=== PATIENT | female | born 1945 | race Caucasian/White ===

== ENCOUNTER 2019-10-30 11:08 | Inpatient (IN) | payer MEDICARE, BC ==
[~2019-10-30] VITALS: Ht 162.6 cm; Wt 71.5 kg
[2019-10-30 11:36] LABS: BASO # 0.1 x10^3/uL (0.0-0.2); BASO % 1 % (0-3); EOS # 0.3 x10^3/uL (0.0-0.7); EOS % 4 % (0-3); HEMATOCRIT 24.8 % (36.0-47.0); HEMOGLOBIN 8.6 g/dL (12.0-15.5); LYMPH # 1.4 x10^3/uL (1.0-4.8); LYMPH % 16 % (24-48); MEAN CORPUSCULAR HEMOGLOBIN 30 pg (25-35); MEAN CORPUSCULAR HGB CONC 35 g/dL (31-37); MEAN CORPUSCULAR VOLUME 87 fL (79-100); MONO # 0.3 x10^3/uL (0.0-1.1); MONO % 4 % (0-9); NEUT # 6.6 x10^3/uL (1.8-7.7); NEUT % 75 % (31-73); PLATELET COUNT 153 x10^3/uL (140-400); RED BLOOD COUNT 2.86 x10^6/uL (3.50-5.40); RED CELL DISTRIBUTION WIDTH 15.6 % (11.5-14.5); WHITE BLOOD COUNT 8.8 x10^3/uL (4.0-11.0)
[2019-10-30 11:53] LABS: ALBUMIN 2.4 g/dL (3.4-5.0); ALBUMIN/GLOBULIN RATIO 0.9 (1.0-1.7); CALCIUM 7.8 mg/dL (8.5-10.1); CREATININE 6.2 mg/dL (0.6-1.0); GFR 6.6; POTASSIUM 3.7 mmol/L (3.5-5.1); TOTAL BILIRUBIN 0.2 mg/dL (0.2-1.0)
[2019-10-30 14:00] VITALS: BP 149/73
[2019-10-30] MEDS ORDERED: LIDOCAINE 1% Multi-Dose 20 ML VIAL. ONE (14:03)
[2019-10-30] MEDS ORDERED: LIDOCAINE 1% Multi-Dose 20 ML VIAL. INJ ONE (14:30)
--- NOTE | 2019-10-30 15:01 | NUR ---
Patient to IR for temp HD catheter placement. Dr. Hickey placed right IJ temp HD catheter, no sedation patient tolerated well with no complications, vitals stable. Patient transferred to dialysis; report called to 2nd floor nurse.
[2019-10-30] MEDS ORDERED: IV NORMAL SALINE 1000ML BAG 1,000 ML IV PRN ×2 (15:37)
--- NOTE | 2019-10-30 15:44 | RAD ---
Procedure: Ultrasound-guided placement of right internal jugular central venous catheter10/30/2019 1:39 PM Clinical Indication: Renal failure Discussion: The risks and benefits of the procedure were discussed the patient and/or their customer service representative teller. Informed consent was obtained. A timeout procedure was performed. All elements of maximal sterile barrier technique including the use of a cap, mask, sterile gown, sterile gloves, large sterile sheet, appropriate hand hygiene, and 2% chlorhexidine for cutaneous antisepsis (or acceptable alternative antiseptic per current guidelines) were followed for this procedure. The patient was prepped and draped in the usual sterile fashion. Ultrasound interrogation of the right neck revealed patency and compressibility of the right internal jugular vein. A 21-gauge micropuncture was then used to gain access to this vein under ultrasound guidance. A hard copy ultrasound image was recorded. A guidewire was advanced centrally. 5 [place] sheath was placed. Over a wire following dilatation, a 20 cm dual-lumen temporary dialysis catheter was advanced centrally. Fluoroscopy was used to ensure placement in the proximal right atrium. Catheter was found to flush and aspirate normally. Follow-up chest radiograph demonstrates tip at the cavoatrial junction. Catheter secured in place and a sterile dressing was applied. No immediate complications were identified. FLUORO TIME: 0.4 MIN Dose area product: 3 [id number] Impression: Successful ultrasound-guided placement of right internal jugular temporary dialysis catheter
[2019-10-30] MEDS ORDERED: diphenhydrAMINE HCL 25 MG CAPSULE PO PRN (15:45)
[2019-10-30] MEDS ORDERED: diphenhydrAMINE 50 MG/ML VIAL IV PRN ×2 (15:45)
[2019-10-30] MEDS ORDERED: ACETAMINOPHEN 500 MG TABLET PO PRN (15:45)
[2019-10-30] MEDS ORDERED: ALPRAZolam 0.25 MG TABLET PO PRN (15:45)
[2019-10-30] MEDS ORDERED: DIALYSIS PATIENT. MC PRN (15:45)
[2019-10-30] MEDS ORDERED: ONDANSETRON ODT 4 MG TAB.RAPDIS. PO PRN (15:45)
[2019-10-30] MEDS: ALBUTEROL SULFATE 2.5 MG/3 ML NEBU. NEB SCH ×2 (15:55→19:50)
--- NOTE | 2019-10-30 17:46 | PHYS DOC ---
Past Medical History Past Medical History: Anemia, Anxiety, CVA, Dementia, Diabetes-Type II, Hypertension, Renal Disease Past Surgical History: No Surgical History Smoking Status: Never Smoker Alcohol Use: None General Adult EDM: Chief Complaint: ABNORMAL LABS HPI: HPI: Patient is a 74 year old female who presents with kidney failure. She saw her primary care doctor earlier today who did labs on her and found that she was in acute kidney failure she has been having decreased kidney function for several months. They feel like she is now in need of dialysis. She has no complaints. Review of Systems: Review of Systems: General: Denies fever, chills, sweats, fatigue Eyes: Denies drainage, blurred vision HENT: Denies rhinorrhea, sore throat Respiratory: Denies cough, shortness of breath, wheezing Cardiac: Denies edema, palpitations, chest pain GI: Denies abdominal pain, N/V MSK: Denies back pain, neck pain Skin: Denies rash, jaundice Neuro: Denies headache, dizziness Psychiatric: Denies SI/HI Heart Score: Risk Factors: Risk Factors: DM, Current or recent (<one month) smoker, HTN, HLP, family history of CAD, obesity. Risk Scores: Score 0 - 3: 2.5% MACE over next 6 weeks - Discharge Home Score 4 - 6: 20.3% MACE over next 6 weeks - Admit for Clinical Observation Score 7 - 10: 72.7% MACE over next 6 weeks - Early Invasive Strategies Allergies: Allergies: Allergies Coded Allergies Type Severity Reaction Last Updated Verified Penicillins Allergy Unknown 10/30/19 Yes Zljiiew-Jcu-Hxl Reductase Inhibitor Allergy Unknown 10/30/19 Yes isosorbide Allergy Unknown 10/30/19 Yes latex Allergy Unknown 10/30/19 Yes trandolapril Allergy Unknown 10/30/19 Yes verapamil Allergy Unknown 10/30/19 Yes Physical Exam: PE: Constitutional: Well developed, well nourished, Cooperative, NAD, non-toxic appearing HEENT: Normocephalic, atraumatic, oropharynx moist, EOMI, PERRL, no drainage from eyes, normal conjunctiva Neck: Supple, normal range of motion, no stridor Cardiovascular: RRR, 2+ radial pulses bilaterally, diffuse edema Respiratory: CTA bilaterally, no respiratory distress, no wheezing/crackles Abdomen: Soft, nontender, nondistended, no masses Skin: Warm, dry, intact Extremities: No obvious deformities Neurologic: Alert and Oriented x3, motor and sensory function grossly normal, no focal deficits Psychologic: Normal affect, normal judgment, normal mood. No SI/HI Current Patient Data: Labs: Laboratory Tests Test 10/30/19 11:27 White Blood Count 8.8 x10^3/uL (4.0-11.0) Red Blood Count 2.86 x10^6/uL (3.50-5.40) L Hemoglobin 8.6 g/dL (12.0-15.5) L Hematocrit 24.8 % (36.0-47.0) L Mean Corpuscular Volume 87 fL (79-100) Mean Corpuscular Hemoglobin 30 pg (25-35) Mean Corpuscular Hemoglobin Concent 35 g/dL (31-37) Red Cell Distribution Width 15.6 % (11.5-14.5) H Platelet Count 153 x10^3/uL (140-400) Neutrophils (%) (Auto) 75 % (31-73) H Lymphocytes (%) (Auto) 16 % (24-48) L Monocytes (%) (Auto) 4 % (0-9) Eosinophils (%) (Auto) 4 % (0-3) H Basophils (%) (Auto) 1 % (0-3) Neutrophils # (Auto) 6.6 x10^3/uL (1.8-7.7) Lymphocytes # (Auto) 1.4 x10^3/uL (1.0-4.8) Monocytes # (Auto) 0.3 x10^3/uL (0.0-1.1) Eosinophils # (Auto) 0.3 x10^3/uL (0.0-0.7) Basophils # (Auto) 0.1 x10^3/uL (0.0-0.2) Sodium Level 120 mmol/L (136-145) *L Potassium Level 3.7 mmol/L (3.5-5.1) Chloride Level 84 mmol/L (98-107) L Carbon Dioxide Level 22 mmol/L (21-32) Anion Gap 14 (6-14) Blood Urea Nitrogen 49 mg/dL (7-20) H Creatinine 6.2 mg/dL (0.6-1.0) H Estimated GFR (Cockcroft-Gault) 6.6 BUN/Creatinine Ratio 8 (6-20) Glucose Level 127 mg/dL (70-99) H Calcium Level 7.8 mg/dL (8.5-10.1) L Total Bilirubin 0.2 mg/dL (0.2-1.0) Aspartate Amino Transferase (AST) 25 U/L (15-37) Alanine Aminotransferase (ALT) 20 U/L (14-59) Alkaline Phosphatase 84 U/L (46-116) Total Protein 5.0 g/dL (6.4-8.2) L Albumin 2.4 g/dL (3.4-5.0) L Albumin/Globulin Ratio 0.9 (1.0-1.7) L Hepatitis B Surface Antigen Nonreactive (Nonreactive) Hepatitis B Core Total Antibody Nonreactive (Nonreactive) Laboratory Tests 10/30/19 11:27 Laboratory Tests 10/30/19 11:27 Vital Signs: Vital Signs Date Time Temp Pulse Resp B/P (MAP) Pulse Ox O2 Delivery O2 Flow Rate FiO2 10/30/19 14:48 Room Air 10/30/19 14:00 97.8 71 20 149/73 (98) 96 97.8 EKG: EKG: [] Radiology/Procedures: Radiology/Procedures: [] Course & Med Decision Making: Course & Med Decision Making Pertinent Labs and Imaging studies reviewed. (See chart for details) Patient is a 74-year-old female who presents to the emergency room needing admission for dialysis. She has no complaints at this time. BMP was done and shows elevated creatinine and a low sodium. She will not be given fluids given that she is requiring dialysis and has diffuse edema. Nephrology knows about her and plans to put in a dialysis catheter today. Dragon Disclaimer: Dragon Disclaimer: This electronic medical record was generated, in whole or in part, using a voice recognition dictation system. Departure Departure Impression: Primary Impression: Kidney failure Additional Impression: Hyponatremia Disposition: ADMITTED INPATIENT Condition: STABLE Referrals: RAY OSEGUERA MD (PCP) Justicifation of Admission Dx: Justifications for Admission: Justification of Admission Dx: Yes Acute Renal Failure: Serum Cr > 4mg/dL CLARICE LUGO MD Oct 30, 2019 17:46
[2019-10-30 17:52] VITALS: BP 166/73
[2019-10-30] MEDS: hydrALAZINE 20 MG/ML VIAL. IVP PRN (18:11)
--- NOTE | 2019-10-30 18:40 | HP ---
ADMIT DATE: 10/30/2019 CHIEF COMPLAINT: Abnormal labs. HISTORY OF PRESENT ILLNESS: The patient is a pleasant elderly female who has been developing renal failure for some time. Apparently, she was sent in because of abnormal labs to the point that she probably needs to start dialysis. Indeed, we checked her creatinine and it is 6.2, which puts her GFR around 10%. I discussed the case with ER physician. We are going to admit the patient, get her dialyzed. In fact, the patient just finished her first dialysis treatment upon my arrival. PAST MEDICAL HISTORY: End-stage renal disease, diabetes, and hypertension. ALLERGIES: PENICILLIN, STATINS, ISOSORBIDE, LATEX, ULTRAM AND VERAPAMIL. FAMILY HISTORY: Coronary artery disease. SOCIAL HISTORY: She does not drink, smoke or take drugs. MEDICATIONS: Reviewed, please refer to the MRAD. REVIEW OF SYSTEMS: GENERAL: No history of weight change, weakness or fevers. SKIN: No bruising, hair changes or rashes. EYES: No blurred, double or loss of vision. NOSE AND THROAT: No history of nosebleeds, hoarseness or sore throat. HEART: No history of palpitations, chest pain or shortness of breath on exertion. LUNGS: Denies cough, hemoptysis, wheezing or shortness of breath. GASTROINTESTINAL: Denies changes in appetite, nausea, vomiting, diarrhea or constipation. GENITOURINARY: No history of frequency, urgency, hesitancy or nocturia. NEUROLOGIC: Denies history of numbness, tingling, tremor or weakness. PSYCHIATRIC: No history of panic, anxiety or depression. ENDOCRINE: No history of heat or cold intolerance, polyuria or polydipsia. EXTREMITIES: Denies muscle weakness, joint pain, pain on walking or stiffness. PHYSICAL EXAMINATION: VITALS: Within normal limits and are stable. GENERAL: No apparent distress. Alert and oriented. HEENT: Normal cephalic atraumatic, external auditory canals are patent EYES: Extraocular muscles are intact, pupils are equally round and reactive to light and accommodation MUSCULOSKELETAL: Well developed, well nourished, good range of motion ENDOCRINE: No thyromegaly was palpated LYMPHATICS: No cervical chain or axillary nodes were noted HEMATOPOIETIC: No bruising NECK: Supple, no JVD, no thyromegaly was noted. LUNGS: Clear to auscultation in all lung melendez without rhonchi or wheezing. HEART: RRR, S1, S2 present. Peripheral pulses intact, no obvious murmurs were noted. ABDOMEN: Soft, nontender. Positive bowel sounds no organomegaly, normal bowel sounds. EXTREMITIES: Without any cyanosis, clubbing, or edema. Pedal pulses intact, Homans sign is negative. NEUROLOGIC: Normal speech, normal tone. A & O x3, moves all extremities, no obvious focal deficits. PSYCHIATRIC: Normal affect, normal mood. Stable. SKIN: No ulcerations or rashes, good skin turgor, no jaundice. VASCULAR: Good capillary refill, neurovascular bundle appears to be intact. ASSESSMENT AND PLAN: End-stage renal disease. We are starting dialysis today. We just got a catheter in her and just finished her first treatment. She will need 3 days' worth first and then she will go home with every other day dialysis once we can get her a chair time. Home meds, DVT prophylaxis. Full code. Appreciate Nephrology input. TETE COPELAND DO DR: LARISA/alyse JOB#: [id number] / [id number]
[2019-10-30 19:35] VITALS: BP 147/67
[2019-10-30] MEDS ORDERED: hydrALAZINE 10 MG TABLET PO SCH (21:00)
[2019-10-30] MEDS: LABETALOL HCL 200 MG TABLET PO SCH (21:06)
[2019-10-30 23:35] VITALS: BP 147/66
[2019-10-31 03:40] VITALS: BP 135/65
[2019-10-31] MEDS: LEVOTHYROXINE 50 MCG TABLET PO SCH (05:56)
[2019-10-31] MEDS ORDERED: ALPR0.254 PO (06:52)
[2019-10-31 07:00] VITALS: BP 168/81
[2019-10-31] MEDS ORDERED: BUME1TAB3 PO (07:10)
[2019-10-31] MEDS ORDERED: NIFE60TA90 PO (07:10)
[2019-10-31] MEDS ORDERED: ASPI-612 PO (07:10)
[2019-10-31] MEDS ORDERED: FAMO20TA5 PO (07:10)
[2019-10-31] MEDS ORDERED: LEVO50TA5 PO (07:10)
[2019-10-31] MEDS ORDERED: DIPH25CA58 PO (07:10)
[2019-10-31] MEDS ORDERED: LABE200T4 PO (07:10)
[2019-10-31] MEDS ORDERED: CHOL400C PO (07:10)
[2019-10-31] MEDS ORDERED: ALBU2.5V5 NEB (07:10)
[2019-10-31] MEDS ORDERED: HYDR100T24 PO (07:10)
[2019-10-31] MEDS ORDERED: ONDA4TAB7 PO (07:10)
[2019-10-31] MEDS ORDERED: POTA20TA4 PO (07:10)
[2019-10-31] MEDS: ALBUTEROL SULFATE 2.5 MG/3 ML NEBU. NEB SCH ×3 (07:26→16:00)
[2019-10-31] MEDS ORDERED: IV NORMAL SALINE 1000ML BAG 1,000 ML IV PRN ×2 (07:56)
[2019-10-31] MEDS ORDERED: DIALYSIS PATIENT. MC PRN ×2 (08:00)
[2019-10-31] MEDS ORDERED: 0.9 % SODIUM CHLORIDE 10 ML DISP.SYRIN. IV PRN ×2 (08:00)
[2019-10-31] MEDS ORDERED: ALBUMIN HUMAN 25% 200 ML IV PRN (08:00)
[2019-10-31 08:45] LABS: CALCIUM 7.9 mg/dL (8.5-10.1); CREATININE 4.3 mg/dL (0.6-1.0); GFR 10.1; POTASSIUM 3.2 mmol/L (3.5-5.1)
--- NOTE | 2019-10-31 10:14 | PDOC ---
PROGRESS NOTES History of Present Illness History of Present Illness ASSESSMENT AND PLAN: End-stage renal disease. Successful ultrasound-guided placement of right internal jugular temporary dialysis catheter 10/29 HYPERTENSION DIABETES HYPONATREMIA Severe protein-caloric malnutrition PLAN ADMIT dialysis today. DIALYSIS need 3 days' worth first go home with every other day dialysis NEED chair time. Home meds, DVT prophylaxis. Full code. Nephrology FOLLOWING 29 MIN PT EXAM, CHART REVIEW, > 50% of time spent with exam, chart review, pt care coordination Vitals Vitals Vital Signs Date Time Temp Pulse Resp B/P (MAP) Pulse Ox O2 Delivery O2 Flow Rate FiO2 10/31/19 08:00 Room Air 10/31/19 07:26 98 10/31/19 07:00 98.1 75 18 168/81 (110) 98.1 Physical Exam Physical Exam light and accommodation MUSCULOSKELETAL: Well developed, well nourished, good range of motion ENDOCRINE: No thyromegaly was palpated LYMPHATICS: No cervical chain or axillary nodes were noted HEMATOPOIETIC: No bruising NECK: Supple, no JVD, no thyromegaly was noted. LUNGS: Clear to auscultation in all lung melendez without rhonchi or wheezing. HEART: RRR, S1, S2 present. Peripheral pulses intact, no obvious murmurs were noted. ABDOMEN: Soft, nontender. Positive bowel sounds no organomegaly, normal bowel sounds. EXTREMITIES: Without any cyanosis, clubbing, or edema. Pedal pulses intact, Homans sign is negative. NEUROLOGIC: Normal speech, normal tone. A & O x3, moves all extremities, no obvious focal deficits. PSYCHIATRIC: Normal affect, normal mood. Stable. SKIN: No ulcerations or rashes, good skin turgor, no jaundice. VASCULAR: Good capillary refill, neurovascular bundle appears to be intact. General: Alert, Oriented X3, Cooperative, No acute distress, Other (only fair memory) Heart: Regular rate Lungs: Clear Abdomen: Normal bowel sounds, Soft, No tenderness Extremities: No clubbing, No cyanosis Skin: No significant lesion Labs LABS Procedure: Ultrasound-guided placement of right internal jugular central venous catheter10/30/2019 1:39 PM Clinical Indication: Renal failure Discussion: The risks and benefits of the procedure were discussed the patient and/or their customer relations representative. Informed consent was obtained. A timeout procedure was performed. All elements of maximal sterile barrier technique including the use of a cap, mask, sterile gown, sterile gloves, large sterile sheet, appropriate hand hygiene, and 2% chlorhexidine for cutaneous antisepsis (or acceptable alternative antiseptic per current guidelines) were followed for this procedure. The patient was prepped and draped in the usual sterile fashion. Ultrasound interrogation of the right neck revealed patency and compressibility of the right internal jugular vein. A 21-gauge micropuncture was then used to gain access to this vein under ultrasound guidance. A hard copy ultrasound image was recorded. A guidewire was advanced centrally. 5 Beninese sheath was placed. Over a wire following dilatation, a 20 cm dual-lumen temporary dialysis catheter was advanced centrally. Fluoroscopy was used to ensure placement in the proximal right atrium. Catheter was found to flush and aspirate normally. Follow-up chest radiograph demonstrates tip at the cavoatrial junction. Catheter secured in place and a sterile dressing was applied. No immediate complications were identified. FLUORO TIME: 0.4 MIN Dose area product: 3 [id number] Impression: Successful ultrasound-guided placement of right internal jugular temporary dialysis catheter DICTATED and SIGNED BY: ADA KWAN MD DATE: 10/30/191539 Laboratory Tests Test 10/30/19 11:27 10/30/19 18:04 10/30/19 21:25 10/31/19 07:29 White Blood Count 8.8 x10^3/uL (4.0-11.0) Red Blood Count 2.86 x10^6/uL (3.50-5.40) Hemoglobin 8.6 g/dL (12.0-15.5) Hematocrit 24.8 % (36.0-47.0) Mean Corpuscular Volume 87 fL (79-100) Mean Corpuscular Hemoglobin 30 pg (25-35) Mean Corpuscular Hemoglobin Concent 35 g/dL (31-37) Red Cell Distribution Width 15.6 % (11.5-14.5) Platelet Count 153 x10^3/uL (140-400) Neutrophils (%) (Auto) 75 % (31-73) Lymphocytes (%) (Auto) 16 % (24-48) Monocytes (%) (Auto) 4 % (0-9) Eosinophils (%) (Auto) 4 % (0-3) Basophils (%) (Auto) 1 % (0-3) Neutrophils # (Auto) 6.6 x10^3/uL (1.8-7.7) Lymphocytes # (Auto) 1.4 x10^3/uL (1.0-4.8) Monocytes # (Auto) 0.3 x10^3/uL (0.0-1.1) Eosinophils # (Auto) 0.3 x10^3/uL (0.0-0.7) Basophils # (Auto) 0.1 x10^3/uL (0.0-0.2) Sodium Level 120 mmol/L (136-145) Potassium Level 3.7 mmol/L (3.5-5.1) Chloride Level 84 mmol/L (98-107) Carbon Dioxide Level 22 mmol/L (21-32) Anion Gap 14 (6-14) Blood Urea Nitrogen 49 mg/dL (7-20) Creatinine 6.2 mg/dL (0.6-1.0) Estimated GFR (Cockcroft-Gault) 6.6 BUN/Creatinine Ratio 8 (6-20) Glucose Level 127 mg/dL (70-99) Calcium Level 7.8 mg/dL (8.5-10.1) Total Bilirubin 0.2 mg/dL (0.2-1.0) Aspartate Amino Transf (AST/SGOT) 25 U/L (15-37) Alanine Aminotransferase (ALT/SGPT) 20 U/L (14-59) Alkaline Phosphatase 84 U/L (46-116) Total Protein 5.0 g/dL (6.4-8.2) Albumin 2.4 g/dL (3.4-5.0) Albumin/Globulin Ratio 0.9 (1.0-1.7) Hepatitis B Surface Antigen Nonreactive (Nonreactive) Hepatitis B Surface Antibody, Quant 155.9 mIU/mL (Immunity>9.9) Hepatitis B Core Total Antibody Nonreactive (Nonreactive) Glucose (Fingerstick) 90 mg/dL (70-99) 101 mg/dL (70-99) 107 mg/dL (70-99) Test 10/31/19 08:20 Sodium Level 127 mmol/L (136-145) Potassium Level 3.2 mmol/L (3.5-5.1) Chloride Level 91 mmol/L (98-107) Carbon Dioxide Level 26 mmol/L (21-32) Anion Gap 10 (6-14) Blood Urea Nitrogen 27 mg/dL (7-20) Creatinine 4.3 mg/dL (0.6-1.0) Estimated GFR (Cockcroft-Gault) 10.1 Glucose Level 113 mg/dL (70-99) Calcium Level 7.9 mg/dL (8.5-10.1) Assessment and Plan Assessmemt and Plan Problems Medical Problems: (1) Hyponatremia Status: Acute (2) Kidney failure Status: Acute Comment Review of Relevant I have reviewed the following items parker (where applicable) has been applied. Labs Laboratory Tests Test 10/30/19 11:27 10/30/19 18:04 10/30/19 21:25 10/31/19 07:29 White Blood Count 8.8 x10^3/uL (4.0-11.0) Red Blood Count 2.86 x10^6/uL (3.50-5.40) Hemoglobin 8.6 g/dL (12.0-15.5) Hematocrit 24.8 % (36.0-47.0) Mean Corpuscular Volume 87 fL (79-100) Mean Corpuscular Hemoglobin 30 pg (25-35) Mean Corpuscular Hemoglobin Concent 35 g/dL (31-37) Red Cell Distribution Width 15.6 % (11.5-14.5) Platelet Count 153 x10^3/uL (140-400) Neutrophils (%) (Auto) 75 % (31-73) Lymphocytes (%) (Auto) 16 % (24-48) Monocytes (%) (Auto) 4 % (0-9) Eosinophils (%) (Auto) 4 % (0-3) Basophils (%) (Auto) 1 % (0-3) Neutrophils # (Auto) 6.6 x10^3/uL (1.8-7.7) Lymphocytes # (Auto) 1.4 x10^3/uL (1.0-4.8) Monocytes # (Auto) 0.3 x10^3/uL (0.0-1.1) Eosinophils # (Auto) 0.3 x10^3/uL (0.0-0.7) Basophils # (Auto) 0.1 x10^3/uL (0.0-0.2) Sodium Level 120 mmol/L (136-145) Potassium Level 3.7 mmol/L (3.5-5.1) Chloride Level 84 mmol/L (98-107) Carbon Dioxide Level 22 mmol/L (21-32) Anion Gap 14 (6-14) Blood Urea Nitrogen 49 mg/dL (7-20) Creatinine 6.2 mg/dL (0.6-1.0) Estimated GFR (Cockcroft-Gault) 6.6 BUN/Creatinine Ratio 8 (6-20) Glucose Level 127 mg/dL (70-99) Calcium Level 7.8 mg/dL (8.5-10.1) Total Bilirubin 0.2 mg/dL (0.2-1.0) Aspartate Amino Transf (AST/SGOT) 25 U/L (15-37) Alanine Aminotransferase (ALT/SGPT) 20 U/L (14-59) Alkaline Phosphatase 84 U/L (46-116) Total Protein 5.0 g/dL (6.4-8.2) Albumin 2.4 g/dL (3.4-5.0) Albumin/Globulin Ratio 0.9 (1.0-1.7) Hepatitis B Surface Antigen Nonreactive (Nonreactive) Hepatitis B Surface Antibody, Quant 155.9 mIU/mL (Immunity>9.9) Hepatitis B Core Total Antibody Nonreactive (Nonreactive) Glucose (Fingerstick) 90 mg/dL (70-99) 101 mg/dL (70-99) 107 mg/dL (70-99) Test 10/31/19 08:20 Sodium Level 127 mmol/L (136-145) Potassium Level 3.2 mmol/L (3.5-5.1) Chloride Level 91 mmol/L (98-107) Carbon Dioxide Level 26 mmol/L (21-32) Anion Gap 10 (6-14) Blood Urea Nitrogen 27 mg/dL (7-20) Creatinine 4.3 mg/dL (0.6-1.0) Estimated GFR (Cockcroft-Gault) 10.1 Glucose Level 113 mg/dL (70-99) Calcium Level 7.9 mg/dL (8.5-10.1) Laboratory Tests Test 10/30/19 11:27 10/30/19 18:04 10/30/19 21:25 10/31/19 07:29 White Blood Count 8.8 x10^3/uL (4.0-11.0) Red Blood Count 2.86 x10^6/uL (3.50-5.40) Hemoglobin 8.6 g/dL (12.0-15.5) Hematocrit 24.8 % (36.0-47.0) Mean Corpuscular Volume 87 fL (79-100) Mean Corpuscular Hemoglobin 30 pg (25-35) Mean Corpuscular Hemoglobin Concent 35 g/dL (31-37) Red Cell Distribution Width 15.6 % (11.5-14.5) Platelet Count 153 x10^3/uL (140-400) Neutrophils (%) (Auto) 75 % (31-73) Lymphocytes (%) (Auto) 16 % (24-48) Monocytes (%) (Auto) 4 % (0-9) Eosinophils (%) (Auto) 4 % (0-3) Basophils (%) (Auto) 1 % (0-3) Neutrophils # (Auto) 6.6 x10^3/uL (1.8-7.7) Lymphocytes # (Auto) 1.4 x10^3/uL (1.0-4.8) Monocytes # (Auto) 0.3 x10^3/uL (0.0-1.1) Eosinophils # (Auto) 0.3 x10^3/uL (0.0-0.7) Basophils # (Auto) 0.1 x10^3/uL (0.0-0.2) Sodium Level 120 mmol/L (136-145) Potassium Level 3.7 mmol/L (3.5-5.1) Chloride Level 84 mmol/L (98-107) Carbon Dioxide Level 22 mmol/L (21-32) Anion Gap 14 (6-14) Blood Urea Nitrogen 49 mg/dL (7-20) Creatinine 6.2 mg/dL (0.6-1.0) Estimated GFR (Cockcroft-Gault) 6.6 BUN/Creatinine Ratio 8 (6-20) Glucose Level 127 mg/dL (70-99) Calcium Level 7.8 mg/dL (8.5-10.1) Total Bilirubin 0.2 mg/dL (0.2-1.0) Aspartate Amino Transf (AST/SGOT) 25 U/L (15-37) Alanine Aminotransferase (ALT/SGPT) 20 U/L (14-59) Alkaline Phosphatase 84 U/L (46-116) Total Protein 5.0 g/dL (6.4-8.2) Albumin 2.4 g/dL (3.4-5.0) Albumin/Globulin Ratio 0.9 (1.0-1.7) Hepatitis B Surface Antigen Nonreactive (Nonreactive) Hepatitis B Surface Antibody, Quant 155.9 mIU/mL (Immunity>9.9) Hepatitis B Core Total Antibody Nonreactive (Nonreactive) Glucose (Fingerstick) 90 mg/dL (70-99) 101 mg/dL (70-99) 107 mg/dL (70-99) Test 10/31/19 08:20 Sodium Level 127 mmol/L (136-145) Potassium Level 3.2 mmol/L (3.5-5.1) Chloride Level 91 mmol/L (98-107) Carbon Dioxide Level 26 mmol/L (21-32) Anion Gap 10 (6-14) Blood Urea Nitrogen 27 mg/dL (7-20) Creatinine 4.3 mg/dL (0.6-1.0) Estimated GFR (Cockcroft-Gault) 10.1 Glucose Level 113 mg/dL (70-99) Calcium Level 7.9 mg/dL (8.5-10.1) Medications Current Medications Lidocaine HCl (Lidocaine 1% 20ml Vial) 20 ml STK-MED ONCE .ROUTE ; Start 10/30/19 at 14:03; Stop 10/30/19 at 14:03; Status DC Lidocaine HCl (Lidocaine 1% 20ml Vial) 20 ml 1X ONCE INJ Last administered on 10/30/19at 14:30; Start 10/30/19 at 14:30; Stop 10/30/19 at 14:31; Status DC Sodium Chloride 1,000 ml @ 1,000 mls/hr Q1H PRN IV hypotension; Start 10/30/19 at 15:37; Stop 10/30/19 at 21:36; Status DC Acetaminophen (Tylenol) 500 mg 1X PRN PRN PO MILD PAIN / TEMP > 100.3'F; Start 10/30/19 at 15:45; Stop 10/31/19 at 15:44 Diphenhydramine HCl (Benadryl) 25 mg 1X PRN PRN IV ITCHING; Start 10/30/19 at 15:45; Stop 10/31/19 at 15:44 Diphenhydramine HCl (Benadryl) 25 mg 1X PRN PRN IV ITCHING; Start 10/30/19 at 15:45; Stop 10/31/19 at 15:44 Sodium Chloride 1,000 ml @ 400 mls/hr Q2H30M PRN IV PATENCY; Start 10/30/19 at 15:37; Stop 10/31/19 at 03:36; Status DC Info (PHARMACY MONITORING -- do not chart) 1 each PRN DAILY PRN MC SEE COMMENTS; Start 10/30/19 at 15:45 Albuterol Sulfate (Ventolin Neb Soln) 1.25 mg RTQID NEB Last administered on 10/30/19at 19:50; Start 10/30/19 at 16:00 Alprazolam (Xanax) 0.25 mg PRN TID PRN PO ANXIETY / AGITATION; Start 10/30/19 a t 15:45 Aspirin (Ecotrin) 81 mg DAILYWBKFT PO ; Start 10/31/19 at 08:00 Diphenhydramine HCl (Benadryl) 25 mg PRN QHS PRN PO INSOMNIA; Start 10/30/19 at 15:45 Bumetanide (Bumex) 1 mg DAILY PO ; Start 10/31/19 at 09:00 Vitamin D (Vitamin D3) 2,000 unit DAILY PO ; Start 10/31/19 at 09:00 Duloxetine HCl (Cymbalta) 60 mg DAILY PO ; Start 10/31/19 at 09:00 Famotidine (Pepcid) 20 mg QODAY PO ; Start 10/31/19 at 09:00 Hydralazine HCl (Apresoline) 100 mg TID PO ; Start 10/30/19 at 21:00; Stop 10/30/19 at 21:08; Status DC Labetalol HCl (Trandate) 200 mg BID PO Last administered on 10/30/19at 21:06; Start 10/30/19 at 21:00 Levothyroxine Sodium (Synthroid) 50 mcg DAILY06 PO Last administered on 10/31/19at 05:56; Start 10/31/19 at 06:00 Nifedipine (Procardia Xl) 60 mg BID PO Last administered on 10/30/19at 21:07; Start 10/30/19 at 21:00 Potassium Chloride (Klor-Con) 20 meq DAILYWBKFT PO ; Start 10/31/19 at 08:00 Ondansetron HCl (Zofran Odt) 4 mg PRN Q8HRS PRN PO NAUSEA/VOMITING; Start 10/30/19 at 15:45 Hydralazine HCl (Apresoline Inj) 10 mg PRN Q4HRS PRN IVP ELEVATED BP, SEE COMMENTS Last administered on 10/30/19at 18:11; Start 10/30/19 at 18:00 Hydralazine HCl (Apresoline) 100 mg TID PO Last administered on 10/30/19at 21:10; Start 10/30/19 at 21:30 Sodium Chloride 1,000 ml @ 1,000 mls/hr Q1H PRN IV hypotension; Start 10/31/19 at 07:56; Stop 10/31/19 at 13:55 Albumin Human 200 ml @ 200 mls/hr 1X PRN PRN IV Hypotension; Start 10/31/19 at 08:00; Stop 10/31/19 at 13:59 Sodium Chloride (Normal Saline Flush) 10 ml 1X PRN PRN IV AP catheter pack; Start 10/31/19 at 08:00; Stop 11/01/19 at 07:59 Sodium Chloride (Normal Saline Flush) 10 ml 1X PRN PRN IV POSSUM TRAPPER catheter pack; Start 10/31/19 at 08:00; Stop 11/01/19 at 07:59 Sodium Chloride 1,000 ml @ 400 mls/hr Q2H30M PRN IV PATENCY; Start 10/31/19 at 07:56; Stop 10/31/19 at 19:55 Info (PHARMACY MONITORING -- do not chart) 1 each PRN DAILY PRN MC SEE COMM ENTS; Start 10/31/19 at 08:00; Stop 10/31/19 at 08:01; Status DC Info (PHARMACY MONITORING -- do not chart) 1 each PRN DAILY PRN MC SEE COMMENTS; Start 10/31/19 at 08:00; Stop 10/31/19 at 08:01; Status DC Active Scripts Active Reported Vitamin D3 (Cholecalciferol (Vitamin D3)) 10 Mcg Capsule 2,000 Units PO DAILY Zofran (Ondansetron Hcl) 4 Mg Tablet 1 Tab PO Q8HRS Klor-Con M20 (Potassium Chloride) 20 Meq Tab.er.prt 20 Meq PO DAILY Nifedipine Er (Nifedipine) 60 Mg Tab.er.24 60 Mg PO BID Levothyroxine Sodium 50 Mcg Tablet 50 Mcg PO DAILYAC PRN Labetalol Hcl 200 Mg Tablet 1 Tab PO BID Hydralazine Hcl 100 Mg Tablet 1 Tab PO TID Famotidine 20 Mg Tablet 20 Mg PO BID Bumetanide 1 Mg Tablet 1 Tab PO DAILY Benadryl (Diphenhydramine Hcl) 25 Mg Capsule 2 Cap PO PRN DAILY 30 Days Aspirin Ec (Aspirin) 81 Mg Tablet.dr 1 Tab PO DAILY Albuterol Sulfate Neb Soln (Albuterol Sulfate) 2.5 Mg/3 Ml Vial.neb 1.25 Mg NEB SOA Alprazolam 0.25 Mg Tablet 1 Tab PO PRN TID PRN Vitals/I & O Vital Sign - Last 24 Hours 10/30/19 10/30/19 10/30/19 10/30/19 11:30 12:19 12:49 13:19 Temp 97.9 97.9 Pulse 68 66 68 68 Resp 20 20 17 19 B/P (MAP) 153/75 (101) 157/79 (105) 157/76 (103) 158/77 (104) Pulse Ox 100 99 99 99 O2 Delivery Room Air Room Air Room Air Room Air 10/30/19 10/30/19 10/30/19 10/30/19 14:00 14:48 17:52 18:11 Temp 97.8 97.9 97.8 97.9 Pulse 71 78 81 Resp 20 18 B/P (MAP) 149/73 (98) 166/73 (104) 166/81 Pulse Ox 96 96 O2 Delivery Room Air Room Air Room Air 10/30/19 10/30/19 10/30/19 10/30/19 19:21 19:35 19:53 21:06 Temp 98.2 98.2 Pulse 78 78 Resp 17 B/P (MAP) 147/67 (93) 147/67 Pulse Ox 97 97 O2 Delivery Room Air Room Air Room Air 10/30/19 10/30/19 10/30/19 10/31/19 21:07 21:10 23:35 03:40 Temp 98.1 98.1 98.1 98.1 Pulse 78 78 76 85 Resp 19 20 B/P (MAP) 147/67 147/67 147/66 (93) 135/65 (88) Pulse Ox 94 93 O2 Delivery Room Air Room Air 10/31/19 10/31/19 10/31/19 07:00 07:26 08:00 Temp 98.1 98.1 Pulse 75 Resp 18 B/P (MAP) 168/81 (110) Pulse Ox 96 98 O2 Delivery Room Air Room Air Room Air Intake and Output 10/30/19 10/30/19 10/31/19 15:00 23:00 07:00 Intake Total 120 ml 200 ml Output Total 500 ml Balance 120 ml -300 ml KALYAN SANTOS MD Oct 31, 2019 10:14
[2019-10-31 12:07] VITALS: BP 164/94
[2019-10-31] MEDS: CHOLECALCIFEROL (VITAMIN D3) 1,000 UNIT TABLET PO SCH (12:35)
[2019-10-31] MEDS: BUMETANIDE 1 MG TABLET. PO SCH (12:35)
[2019-10-31] MEDS: ASPIRIN ENTERIC COATED 81 MG TABLET.DR. PO SCH (12:35)
[2019-10-31] MEDS: FAMOTIDINE 20 MG TABLET. PO SCH (12:36)
[2019-10-31] MEDS: POTASSIUM CHLORIDE 20 MEQ TABLET.ER. PO SCH (12:37)
[2019-10-31] MEDS: DULoxetine HCL 30 MG CAPSULE.DR PO SCH (12:37)
[2019-10-31] MEDS: LABETALOL HCL 200 MG TABLET PO SCH ×2 (12:39→20:45)
--- NOTE | 2019-10-31 13:26 | PDOC2 ---
CONSULT Date of Consult Date of Consult DATE: 10/31/19 TIME: 13:12 Reason for Consult Reason for Consult: Renal Insufficiency Source Source: Patient History of Present Illness Reason for Visit: Patient is a 74 year old CF who presents with worsening kidney function. She is Dr. Ferris's patient an was advised to come to Er for starting Dialysis . She has been in and out of [facility] . Has gained 9 lbs in the belly and not eating per daughter She was last seen by Dr. Ferris in 2013 She denies CP or SOB. 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 Family History Family History Coronary artery disease. Social History Social History She does not drink, smoke or take drugs. Current Problem List Problem List Problems Medical Problems: (1) Hyponatremia Status: Acute (2) Kidney failure Status: Acute Current Medications Current Medications Current Medications Lidocaine HCl (Lidocaine 1% 20ml Vial) 20 ml STK-MED ONCE .ROUTE ; Start 10/30/19 at 14:03; Stop 10/30/19 at 14:03; Status DC Lidocaine HCl (Lidocaine 1% 20ml Vial) 20 ml 1X ONCE INJ Last administered on 10/30/19at 14:30; Start 10/30/19 at 14:30; Stop 10/30/19 at 14:31; Status DC Sodium Chloride 1,000 ml @ 1,000 mls/hr Q1H PRN IV hypotension; Start 10/30/19 at 15:37; Stop 10/30/19 at 21:36; Status DC Acetaminophen (Tylenol) 500 mg 1X PRN PRN PO MILD PAIN / TEMP > 100.3'F; Start 10/30/19 at 15:45; Stop 10/31/19 at 15:44 Diphenhydramine HCl (Benadryl) 25 mg 1X PRN PRN IV ITCHING; Start 10/30/19 at 15:45; Stop 10/31/19 at 15:44 Diphenhydramine HCl (Benadryl) 25 mg 1X PRN PRN IV ITCHING; Start 10/30/19 at 15:45; Stop 10/31/19 at 15:44 Sodium Chloride 1,000 ml @ 400 mls/hr Q2H30M PRN IV PATENCY; Start 10/30/19 at 15:37; Stop 10/31/19 at 03:36; Status DC Info (PHARMACY MONITORING -- do not chart) 1 each PRN DAILY PRN MC SEE COMMENTS; Start 10/30/19 at 15:45 Albuterol Sulfate (Ventolin Neb Soln) 1.25 mg RTQID NEB Last administered on 10/30/19at 19:50; Start 10/30/19 at 16:00 Alprazolam (Xanax) 0.25 mg PRN TID PRN PO ANXIETY / AGITATION; Start 10/30/19 at 15:45 Aspirin (Ecotrin) 81 mg DAILYWBKFT PO Last administered on 10/31/19 12:35; Start 10/31/19 at 08:00 Diphenhydramine HCl (Benadryl) 25 mg PRN QHS PRN PO INSOMNIA; Start 10/30/19 at 15:45 Bumetanide (Bumex) 1 mg DAILY PO Last administered on 10/31/19 12:35; Start 10/31/19 at 09:00 Vitamin D (Vitamin D3) 2,000 unit DAILY PO Last administered on 10/31/19 12:35; Start 10/31/19 at 09:00 Duloxetine HCl (Cymbalta) 60 mg DAILY PO Last administered on 10/31/19 12:37; Start 10/31/19 at 09:00 Famotidine (Pepcid) 20 mg QODAY PO Last administered on 10/31/19 12:36; Start 10/31/19 at 09:00 Hydralazine HCl (Apresoline) 100 mg TID PO ; Start 10/30/19 at 21:00; Stop 10/30/19 at 21:08; Status DC Labetalol HCl (Trandate) 200 mg BID PO Last administered on 10/31/19at 12:39; Start 10/30/19 at 21:00 Levothyroxine Sodium (Synthroid) 50 mcg DAILY06 PO Last administered on 10/31/19at 05:56; Start 10/31/19 at 06:00 Nifedipine (Procardia Xl) 60 mg BID PO Last administered on 10/31/19at 12:36; Start 10/30/19 at 21:00 Potassium Chloride (Klor-Con) 20 meq DAILYWBKFT PO Last administered on 6/20/20at 12:37; Start 10/31/19 at 08:00 Ondansetron HCl (Zofran Odt) 4 mg PRN Q8HRS PRN PO NAUSEA/VOMITING; Start 10/30/19 at 15:45 Hydralazine HCl (Apresoline Inj) 10 mg PRN Q4HRS PRN IVP ELEVATED BP, SEE COMMENTS Last administered on 10/30/19at 18:11; Start 10/30/19 at 18:00 Hydralazine HCl (Apresoline) 100 mg TID PO Last administered on 10/30/19at 21:10; Start 10/30/19 at 21:30 Sodium Chloride 1,000 ml @ 1,000 mls/hr Q1H PRN IV hypotension; Start 10/31/19 at 07:56; Stop 10/31/19 at 13:55 Albumin Human 200 ml @ 200 mls/hr 1X PRN PRN IV Hypotension; Start 10/31/19 at 08:00; Stop 10/31/19 at 13:59 Sodium Chloride (Normal Saline Flush) 10 ml 1X PRN PRN IV AP catheter pack; Start 10/31/19 at 08:00; Stop 11/01/19 at 07:59 Sodium Chloride (Normal Saline Flush) 10 ml 1X PRN PRN IV LICENSED PHYSICAL THERAPIST ASSISTANT catheter pack; Start 10/31/19 at 08:00; Stop 11/01/19 at 07:59 Sodium Chloride 1,000 ml @ 400 mls/hr Q2H30M PRN IV PATENCY; Start 10/31/19 at 07:56; Stop 10/31/19 at 19:55 Info (PHARMACY MONITORING -- do not chart) 1 each PRN DAILY PRN MC SEE COMMENTS; Start 10/31/19 at 08:00; Stop 10/31/19 at 08:01; Status DC Info (PHARMACY MONITORING -- do not chart) 1 each PRN DAILY PRN MC SEE COMM ENTS; Start 10/31/19 at 08:00; Stop 10/31/19 at 08:01; Status DC Active Scripts Active Reported Vitamin D3 (Cholecalciferol (Vitamin D3)) 10 Mcg Capsule 2,000 Units PO DAILY Zofran (Ondansetron Hcl) 4 Mg Tablet 1 Tab PO Q8HRS Klor-Con M20 (Potassium Chloride) 20 Meq Tab.er.prt 20 Meq PO DAILY Nifedipine Er (Nifedipine) 60 Mg Tab.er.24 60 Mg PO BID Levothyroxine Sodium 50 Mcg Tablet 50 Mcg PO DAILYAC PRN Labetalol Hcl 200 Mg Tablet 1 Tab PO BID Hydralazine Hcl 100 Mg Tablet 1 Tab PO TID Famotidine 20 Mg Tablet 20 Mg PO BID Bumetanide 1 Mg Tablet 1 Tab PO DAILY Benadryl (Diphenhydramine Hcl) 25 Mg Capsule 2 Cap PO PRN DAILY 30 Days Aspirin Ec (Aspirin) 81 Mg Tablet.dr 1 Tab PO DAILY Albuterol Sulfate Neb Soln (Albuterol Sulfate) 2.5 Mg/3 Ml Vial.neb 1.25 Mg NEB SOA Alprazolam 0.25 Mg Tablet 1 Tab PO PRN TID PRN Allergies Allergies: Coded Allergies: Penicillins (Verified Allergy, Severe, 10/31/19) Fzgfvsl-Pab-Flx Reductase Inhibitor (Verified Allergy, Intermediate, 10/31/19) isosorbide (Verified Allergy, Intermediate, 10/31/19) latex (Verified Allergy, Intermediate, 10/31/19) trandolapril (Verified Allergy, Intermediate, 10/31/19) verapamil (Verified Allergy, Intermediate, 10/31/19) ROS Review of System Per HPI Physical Exam Physical Exam GENERAL: No apparent distress. HEENT: OM moist NECK: Supple, LUNGS: Clear to auscultation, Non labored HEART: RRR, S1, S2 present. ABDOMEN: Soft, nontender. EXTREMITIES: edema + NEUROLOGIC: Normal speech, normal tone. A & O x3, moves all extremities, no obvious focal deficits. PSYCHIATRIC: Normal affect, normal mood. Stable. SKIN: No ulcerations or rashes, No mishra Vital Signs Vital Signs Date Time Temp Pulse Resp B/P (MAP) Pulse Ox O2 Delivery O2 Flow Rate FiO2 10/31/19 12:39 87 164/94 10/31/19 12:07 18 94 Room Air 10/31/19 07:00 98.1 98.1 Assessment & Plan New Onset ESRD - Initiated on HD on 10/29, sent to [facility] by Dr. Ferris 2nd treatment today, seen on HD, tolerating well, continue a sordered, [facility] Access- has Temp HDC, will need Tunnelled HDC and OP chair time for MWF with Dr. Ferris at [facility] unit Hyponatremia - asymptomatic, used low Na Dialysate , Improved appropriately Dialysis today HypO kalemia- Dialysis today, Monitor, Replace if stays low HTN- antihypertensives Continue Bumex as well Labs Labs Laboratory Tests Test 10/30/19 11:27 10/30/19 18:04 10/30/19 21:25 10/31/19 07:29 White Blood Count 8.8 x10^3/uL (4.0-11.0) Red Blood Count 2.86 x10^6/uL (3.50-5.40) Hemoglobin 8.6 g/dL (12.0-15.5) Hematocrit 24.8 % (36.0-47.0) Mean Corpuscular Volume 87 fL (79-100) Mean Corpuscular Hemoglobin 30 pg (25-35) Mean Corpuscular Hemoglobin Concent 35 g/dL (31-37) Red Cell Distribution Width 15.6 % (11.5-14.5) Platelet Count 153 x10^3/uL (140-400) Neutrophils (%) (Auto) 75 % (31-73) Lymphocytes (%) (Auto) 16 % (24-48) Monocytes (%) (Auto) 4 % (0-9) Eosinophils (%) (Auto) 4 % (0-3) Basophils (%) (Auto) 1 % (0-3) Neutrophils # (Auto) 6.6 x10^3/uL (1.8-7.7) Lymphocytes # (Auto) 1.4 x10^3/uL (1.0-4.8) Monocytes # (Auto) 0.3 x10^3/uL (0.0-1.1) Eosinophils # (Auto) 0.3 x10^3/uL (0.0-0.7) Basophils # (Auto) 0.1 x10^3/uL (0.0-0.2) Sodium Level 120 mmol/L (136-145) Potassium Level 3.7 mmol/L (3.5-5.1) Chloride Level 84 mmol/L (98-107) Carbon Dioxide Level 22 mmol/L (21-32) Anion Gap 14 (6-14) Blood Urea Nitrogen 49 mg/dL (7-20) Creatinine 6.2 mg/dL (0.6-1.0) Estimated GFR (Cockcroft-Gault) 6.6 BUN/Creatinine Ratio 8 (6-20) Glucose Level 127 mg/dL (70-99) Calcium Level 7.8 mg/dL (8.5-10.1) Total Bilirubin 0.2 mg/dL (0.2-1.0) Aspartate Amino Transf (AST/SGOT) 25 U/L (15-37) Alanine Aminotransferase (ALT/SGPT) 20 U/L (14-59) Alkaline Phosphatase 84 U/L (46-116) Total Protein 5.0 g/dL (6.4-8.2) Albumin 2.4 g/dL (3.4-5.0) Albumin/Globulin Ratio 0.9 (1.0-1.7) Hepatitis B Surface Antigen Nonreactive (Nonreactive) Hepatitis B Surface Antibody, Quant 155.9 mIU/mL (Immunity>9.9) Hepatitis B Core Total Antibody Nonreactive (Nonreactive) Glucose (Fingerstick) 90 mg/dL (70-99) 101 mg/dL (70-99) 107 mg/dL (70-99) Test 10/31/19 08:20 10/31/19 12:03 Sodium Level 127 mmol/L (136-145) Potassium Level 3.2 mmol/L (3.5-5.1) Chloride Level 91 mmol/L (98-107) Carbon Dioxide Level 26 mmol/L (21-32) Anion Gap 10 (6-14) Blood Urea Nitrogen 27 mg/dL (7-20) Creatinine 4.3 mg/dL (0.6-1.0) Estimated GFR (Cockcroft-Gault) 10.1 Glucose Level 113 mg/dL (70-99) Calcium Level 7.9 mg/dL (8.5-10.1) Glucose (Fingerstick) 102 mg/dL (70-99) Laboratory Tests Test 10/30/19 18:04 10/30/19 21:25 10/31/19 07:29 10/31/19 08:20 Glucose (Fingerstick) 90 mg/dL (70-99) 101 mg/dL (70-99) 107 mg/dL (70-99) Sodium Level 127 mmol/L (136-145) Potassium Level 3.2 mmol/L (3.5-5.1) Chloride Level 91 mmol/L (98-107) Carbon Dioxide Level 26 mmol/L (21-32) Anion Gap 10 (6-14) Blood Urea Nitrogen 27 mg/dL (7-20) Creatinine 4.3 mg/dL (0.6-1.0) Estimated GFR (Cockcroft-Gault) 10.1 Glucose Level 113 mg/dL (70-99) Calcium Level 7.9 mg/dL (8.5-10.1) Test 10/31/19 12:03 Glucose (Fingerstick) 102 mg/dL (70-99) Review All relevant outside records, renal labs, imaging studies, telemetry/EKG's were reviewed. AN COURTNEY MD Oct 31, 2019 13:26
[2019-10-31 14:57] VITALS: BP 137/62
[2019-10-31 19:00] VITALS: BP 164/76
[2019-10-31] MEDS: HEPARIN for SUB-Q USE 5,000 UNIT/ML VIAL. SQ SCH (22:00)
[2019-10-31 23:00] VITALS: BP 155/73
[2019-11-01 03:11] VITALS: BP 140/66
[2019-11-01] MEDS: LEVOTHYROXINE 50 MCG TABLET PO SCH (06:03)
[2019-11-01] MEDS: HEPARIN for SUB-Q USE 5,000 UNIT/ML VIAL. SQ SCH ×3 (06:07→22:00)
[2019-11-01 07:00] VITALS: BP 180/84
[2019-11-01 07:40] LABS: BASO # 0.1 x10^3/uL (0.0-0.2); BASO % 1 % (0-3); EOS # 0.3 x10^3/uL (0.0-0.7); EOS % 4 % (0-3); HEMOGLOBIN 8.1 g/dL (12.0-15.5); LYMPH # 1.6 x10^3/uL (1.0-4.8); LYMPH % 22 % (24-48); MEAN CORPUSCULAR HEMOGLOBIN 30 pg (25-35); MEAN CORPUSCULAR HGB CONC 34 g/dL (31-37); MEAN CORPUSCULAR VOLUME 88 fL (79-100); MONO # 0.5 x10^3/uL (0.0-1.1); MONO % 7 % (0-9); NEUT # 4.7 x10^3/uL (1.8-7.7); NEUT % 66 % (31-73); PLATELET COUNT 143 x10^3/uL (140-400); RED BLOOD COUNT 2.74 x10^6/uL (3.50-5.40); RED CELL DISTRIBUTION WIDTH 15.5 % (11.5-14.5); WHITE BLOOD COUNT 7.1 x10^3/uL (4.0-11.0)
[2019-11-01 07:48] LABS: ALBUMIN 2.2 g/dL (3.4-5.0); ALBUMIN/GLOBULIN RATIO 0.7 (1.0-1.7); GFR 15.3; POTASSIUM 3.9 mmol/L (3.5-5.1); TOTAL BILIRUBIN 0.4 mg/dL (0.2-1.0); TOTAL PROTEIN 5.2 g/dL (6.4-8.2)
[2019-11-01] MEDS: CHOLECALCIFEROL (VITAMIN D3) 1,000 UNIT TABLET PO SCH (08:12)
[2019-11-01] MEDS: ASPIRIN ENTERIC COATED 81 MG TABLET.DR. PO SCH (08:12)
[2019-11-01] MEDS: LABETALOL HCL 200 MG TABLET PO SCH ×2 (08:13→21:00)
[2019-11-01] MEDS: POTASSIUM CHLORIDE 20 MEQ TABLET.ER. PO SCH (08:13)
[2019-11-01] MEDS: BUMETANIDE 1 MG TABLET. PO SCH (08:13)
[2019-11-01] MEDS: DULoxetine HCL 30 MG CAPSULE.DR PO SCH (08:14)
[2019-11-01 10:58] VITALS: BP 162/74
--- NOTE | 2019-11-01 11:42 | PDOC ---
PROGRESS NOTES History of Present Illness History of Present Illness ASSESSMENT AND PLAN: End-stage renal disease. Successful ultrasound-guided placement of right internal jugular temporary dialysis catheter 10/29 HYPERTENSION DIABETES HYPONATREMIA Severe protein-caloric malnutrition PLAN ADMIT dialysis today. DIALYSIS need 3 days' worth first Access- has Temp HDC, Tunnelled HDC in am and OP chair time for MWF with Dr. Ferris at [facility] unit go home with every other day dialysis NEED chair time. Home meds, DVT prophylaxis. Full code. Nephrology FOLLOWING 26 MIN PT EXAM, CHART REVIEW, > 50% of time spent with exam, chart review, pt care coordination Vitals Vitals Vital Signs Date Time Temp Pulse Resp B/P (MAP) Pulse Ox O2 Delivery O2 Flow Rate FiO2 11/01/19 10:58 98.3 74 19 162/74 (103) 97 Room Air 98.3 Physical Exam Physical Exam light and accommodation MUSCULOSKELETAL: Well developed, well nourished, good range of motion ENDOCRINE: No thyromegaly was palpated LYMPHATICS: No cervical chain or axillary nodes were noted HEMATOPOIETIC: No bruising NECK: Supple, no JVD, no thyromegaly was noted. LUNGS: Clear to auscultation in all lung melendez without rhonchi or wheezing. HEART: RRR, S1, S2 present. Peripheral pulses intact, no obvious murmurs were noted. ABDOMEN: Soft, nontender. Positive bowel sounds no organomegaly, normal bowel sounds. EXTREMITIES: Without any cyanosis, clubbing, or edema. Pedal pulses intact, Homans sign is negative. NEUROLOGIC: Normal speech, normal tone. A & O x3, moves all extremities, no obvious focal deficits. PSYCHIATRIC: Normal affect, normal mood. Stable. SKIN: No ulcerations or rashes, good skin turgor, no jaundice. VASCULAR: Good capillary refill, neurovascular bundle appears to be intact. General: Alert, Oriented X3, Cooperative, No acute distress, Other (only fair memory) Heart: Regular rate Lungs: Clear Abdomen: Normal bowel sounds, Soft, No tenderness Extremities: No clubbing, No cyanosis Skin: No significant lesion Labs LABS Laboratory Tests Test 10/31/19 12:03 10/31/19 16:23 10/31/19 20:34 11/01/19 06:40 Glucose (Fingerstick) 102 mg/dL (70-99) 115 mg/dL (70-99) 111 mg/dL (70-99) White Blood Count 7.1 x10^3/uL (4.0-11.0) Red Blood Count 2.74 x10^6/uL (3.50-5.40) Hemoglobin 8.1 g/dL (12.0-15.5) Hematocrit 24.0 % (36.0-47.0) Mean Corpuscular Volume 88 fL (79-100) Mean Corpuscular Hemoglobin 30 pg (25-35) Mean Corpuscular Hemoglobin Concent 34 g/dL (31-37) Red Cell Distribution Width 15.5 % (11.5-14.5) Platelet Count 143 x10^3/uL (140-400) Neutrophils (%) (Auto) 66 % (31-73) Lymphocytes (%) (Auto) 22 % (24-48) Monocytes (%) (Auto) 7 % (0-9) Eosinophils (%) (Auto) 4 % (0-3) Basophils (%) (Auto) 1 % (0-3) Neutrophils # (Auto) 4.7 x10^3/uL (1.8-7.7) Lymphocytes # (Auto) 1.6 x10^3/uL (1.0-4.8) Monocytes # (Auto) 0.5 x10^3/uL (0.0-1.1) Eosinophils # (Auto) 0.3 x10^3/uL (0.0-0.7) Basophils # (Auto) 0.1 x10^3/uL (0.0-0.2) Sodium Level 131 mmol/L (136-145) Potassium Level 3.9 mmol/L (3.5-5.1) Chloride Level 95 mmol/L (98-107) Carbon Dioxide Level 29 mmol/L (21-32) Anion Gap 7 (6-14) Blood Urea Nitrogen 14 mg/dL (7-20) Creatinine 3.0 mg/dL (0.6-1.0) Estimated GFR (Cockcroft-Gault) 15.3 BUN/Creatinine Ratio 5 (6-20) Glucose Level 128 mg/dL (70-99) Calcium Level 8.0 mg/dL (8.5-10.1) Total Bilirubin 0.4 mg/dL (0.2-1.0) Aspartate Amino Transf (AST/SGOT) 24 U/L (15-37) Alanine Aminotransferase (ALT/SGPT) 21 U/L (14-59) Alkaline Phosphatase 73 U/L (46-116) Total Protein 5.2 g/dL (6.4-8.2) Albumin 2.2 g/dL (3.4-5.0) Albumin/Globulin Ratio 0.7 (1.0-1.7) Test 11/01/19 07:23 11/01/19 11:26 Glucose (Fingerstick) 125 mg/dL (70-99) 118 mg/dL (70-99) Assessment and Plan Assessmemt and Plan Problems Medical Problems: (1) Hyponatremia Status: Acute (2) Kidney failure Status: Acute Comment Review of Relevant I have reviewed the following items parker (where applicable) has been applied. Labs Laboratory Tests Test 10/30/19 18:04 10/30/19 21:25 10/31/19 07:29 10/31/19 08:20 Glucose (Fingerstick) 90 mg/dL (70-99) 101 mg/dL (70-99) 107 mg/dL (70-99) Sodium Level 127 mmol/L (136-145) Potassium Level 3.2 mmol/L (3.5-5.1) Chloride Level 91 mmol/L (98-107) Carbon Dioxide Level 26 mmol/L (21-32) Anion Gap 10 (6-14) Blood Urea Nitrogen 27 mg/dL (7-20) Creatinine 4.3 mg/dL (0.6-1.0) Estimated GFR (Cockcroft-Gault) 10.1 Glucose Level 113 mg/dL (70-99) Calcium Level 7.9 mg/dL (8.5-10.1) Test 10/31/19 12:03 10/31/19 16:23 10/31/19 20:34 11/01/19 06:40 Glucose (Fingerstick) 102 mg/dL (70-99) 115 mg/dL (70-99) 111 mg/dL (70-99) White Blood Count 7.1 x10^3/uL (4.0-11.0) Red Blood Count 2.74 x10^6/uL (3.50-5.40) Hemoglobin 8.1 g/dL (12.0-15.5) Hematocrit 24.0 % (36.0-47.0) Mean Corpuscular Volume 88 fL (79-100) Mean Corpuscular Hemoglobin 30 pg (25-35) Mean Corpuscular Hemoglobin Concent 34 g/dL (31-37) Red Cell Distribution Width 15.5 % (11.5-14.5) Platelet Count 143 x10^3/uL (140-400) Neutrophils (%) (Auto) 66 % (31-73) Lymphocytes (%) (Auto) 22 % (24-48) Monocytes (%) (Auto) 7 % (0-9) Eosinophils (%) (Auto) 4 % (0-3) Basophils (%) (Auto) 1 % (0-3) Neutrophils # (Auto) 4.7 x10^3/uL (1.8-7.7) Lymphocytes # (Auto) 1.6 x10^3/uL (1.0-4.8) Monocytes # (Auto) 0.5 x10^3/uL (0.0-1.1) Eosinophils # (Auto) 0.3 x10^3/uL (0.0-0.7) Basophils # (Auto) 0.1 x10^3/uL (0.0-0.2) Sodium Level 131 mmol/L (136-145) Potassium Level 3.9 mmol/L (3.5-5.1) Chloride Level 95 mmol/L (98-107) Carbon Dioxide Level 29 mmol/L (21-32) Anion Gap 7 (6-14) Blood Urea Nitrogen 14 mg/dL (7-20) Creatinine 3.0 mg/dL (0.6-1.0) Estimated GFR (Cockcroft-Gault) 15.3 BUN/Creatinine Ratio 5 (6-20) Glucose Level 128 mg/dL (70-99) Calcium Level 8.0 mg/dL (8.5-10.1) Total Bilirubin 0.4 mg/dL (0.2-1.0) Aspartate Amino Transf (AST/SGOT) 24 U/L (15-37) Alanine Aminotransferase (ALT/SGPT) 21 U/L (14-59) Alkaline Phosphatase 73 U/L (46-116) Total Protein 5.2 g/dL (6.4-8.2) Albumin 2.2 g/dL (3.4-5.0) Albumin/Globulin Ratio 0.7 (1.0-1.7) Test 11/01/19 07:23 11/01/19 11:26 Glucose (Fingerstick) 125 mg/dL (70-99) 118 mg/dL (70-99) Laboratory Tests Test 10/31/19 12:03 10/31/19 16:23 10/31/19 20:34 11/01/19 06:40 Glucose (Fingerstick) 102 mg/dL (70-99) 115 mg/dL (70-99) 111 mg/dL (70-99) White Blood Count 7.1 x10^3/uL (4.0-11.0) Red Blood Count 2.74 x10^6/uL (3.50-5.40) Hemoglobin 8.1 g/dL (12.0-15.5) Hematocrit 24.0 % (36.0-47.0) Mean Corpuscular Volume 88 fL (79-100) Mean Corpuscular Hemoglobin 30 pg (25-35) Mean Corpuscular Hemoglobin Concent 34 g/dL (31-37) Red Cell Distribution Width 15.5 % (11.5-14.5) Platelet Count 143 x10^3/uL (140-400) Neutrophils (%) (Auto) 66 % (31-73) Lymphocytes (%) (Auto) 22 % (24-48) Monocytes (%) (Auto) 7 % (0-9) Eosinophils (%) (Auto) 4 % (0-3) Basophils (%) (Auto) 1 % (0-3) Neutrophils # (Auto) 4.7 x10^3/uL (1.8-7.7) Lymphocytes # (Auto) 1.6 x10^3/uL (1.0-4.8) Monocytes # (Auto) 0.5 x10^3/uL (0.0-1.1) Eosinophils # (Auto) 0.3 x10^3/uL (0.0-0.7) Basophils # (Auto) 0.1 x10^3/uL (0.0-0.2) Sodium Level 131 mmol/L (136-145) Potassium Level 3.9 mmol/L (3.5-5.1) Chloride Level 95 mmol/L (98-107) Carbon Dioxide Level 29 mmol/L (21-32) Anion Gap 7 (6-14) Blood Urea Nitrogen 14 mg/dL (7-20) Creatinine 3.0 mg/dL (0.6-1.0) Estimated GFR (Cockcroft-Gault) 15.3 BUN/Creatinine Ratio 5 (6-20) Glucose Level 128 mg/dL (70-99) Calcium Level 8.0 mg/dL (8.5-10.1) Total Bilirubin 0.4 mg/dL (0.2-1.0) Aspartate Amino Transf (AST/SGOT) 24 U/L (15-37) Alanine Aminotransferase (ALT/SGPT) 21 U/L (14-59) Alkaline Phosphatase 73 U/L (46-116) Total Protein 5.2 g/dL (6.4-8.2) Albumin 2.2 g/dL (3.4-5.0) Albumin/Globulin Ratio 0.7 (1.0-1.7) Test 11/01/19 07:23 11/01/19 11:26 Glucose (Fingerstick) 125 mg/dL (70-99) 118 mg/dL (70-99) Medications Current Medications Lidocaine HCl (Lidocaine 1% 20ml Vial) 20 ml STK-MED ONCE .ROUTE ; Start 10/30/19 at 14:03; Stop 10/30/19 at 14:03; Status DC Lidocaine HCl (Lidocaine 1% 20ml Vial) 20 ml 1X ONCE INJ Last administered on 10/30/19at 14:30; Start 10/30/19 at 14:30; Stop 10/30/19 at 14:31; Status DC Sodium Chloride 1,000 ml @ 1,000 mls/hr Q1H PRN IV hypotension; Start 10/30/19 at 15:37; Stop 10/30/19 at 21:36; Status DC Acetaminophen (Tylenol) 500 mg 1X PRN PRN PO MILD PAIN / TEMP > 100.3'F Last administered on 10/31/19at 14:58; Start 10/30/19 at 15:45; Stop 10/31/19 at 15:44; Status DC Diphenhydramine HCl (Benadryl) 25 mg 1X PRN PRN IV ITCHING; Start 10/30/19 at 15:45; Stop 10/31/19 at 15:44; Status DC Diphenhydramine HCl (Benadryl) 25 mg 1X PRN PRN IV ITCHING; Start 10/30/19 at 15:45; Stop 10/31/19 at 15:44; Status DC Sodium Chloride 1,000 ml @ 400 mls/hr Q2H30M PRN IV PATENCY; Start 10/30/19 at 15:37; Stop 10/31/19 at 03:36; Status DC Info (PHARMACY MONITORING -- do not chart) 1 each PRN DAILY PRN MC SEE COMMENTS; Start 10/30/19 at 15:45 Albuterol Sulfate (Ventolin Neb Soln) 1.25 mg RTQID NEB Last administered on 10/30/19at 19:50; Start 10/30/19 at 16:00 Alprazolam (Xanax) 0.25 mg PRN TID PRN PO ANXIETY / AGITATION Last administered on 11/01/19at 08:12; Start 10/30/19 at 15:45 Aspirin (Ecotrin) 81 mg DAILYWBKFT PO Last administered on 11/01/19at 08:12; Start 10/31/19 at 08:00 Diphenhydramine HCl (Benadryl) 25 mg PRN QHS PRN PO INSOMNIA; Start 10/30/19 at 15:45 Bumetanide (Bumex) 1 mg DAILY PO Last administered on 11/01/19at 08:13; Start 10/31/19 at 09:00 Vitamin D (Vitamin D3) 2,000 unit DAILY PO Last administered on 11/01/19at 08:12; Start 10/31/19 at 09:00 Duloxetine HCl (Cymbalta) 60 mg DAILY PO Last administered on 11/01/19at 08:14; Start 10/31/19 at 09:00 Famotidine (Pepcid) 20 mg QODAY PO Last administered on 10/31/19at 12:36; Start 10/31/19 at 09:00 Hydralazine HCl (Apresoline) 100 mg TID PO ; Start 10/30/19 at 21:00; Stop 10/30/19 at 21:08; Status DC Labetalol HCl (Trandate) 200 mg BID PO Last administered on 11/01/19at 08:13; Start 10/30/19 at 21:00 Levothyroxine Sodium (Synthroid) 50 mcg DAILY06 PO Last administered on 11/01/19at 06:03; Start 10/31/19 at 06:00 Nifedipine (Procardia Xl) 60 mg BID PO Last administered on 11/01/19at 08:13; Start 10/30/19 at 21:00 Potassium Chloride (Klor-Con) 20 meq DAILYWBKFT PO Last administered on 11/01/19at 08:13; Start 10/31/19 at 08:00 Ondansetron HCl (Zofran Odt) 4 mg PRN Q8HRS PRN PO NAUSEA/VOMITING; Start 10/30/19 at 15:45 Hydralazine HCl (Apresoline Inj) 10 mg PRN Q4HRS PRN IVP ELEVATED BP, SEE COMMENTS Last administered on 10/30/19at 18:11; Start 10/30/19 at 18:00 Hydralazine HCl (Apresoline) 100 mg TID PO Last administered on 11/01/19at 08:14; Start 10/30/19 at 21:30 Sodium Chloride 1,000 ml @ 1,000 mls/hr Q1H PRN IV hypotension; Start 10/31/19 at 07:56; Stop 10/31/19 at 13:55; Status DC Albumin Human 200 ml @ 200 mls/hr 1X PRN PRN IV Hypotension; Start 10/31/19 at 08:00; Stop 10/31/19 at 13:59; Status DC Sodium Chloride (Normal Saline Flush) 10 ml 1X PRN PRN IV AP catheter pack; Start 10/31/19 at 08:00; Stop 11/01/19 at 07:59; Status DC Sodium Chloride (Normal Saline Flush) 10 ml 1X PRN PRN IV THEOLOGY PROFESSOR catheter pack; Start 10/31/19 at 08:00; Stop 11/01/19 at 07:59; Status DC Sodium Chloride 1,000 ml @ 400 mls/hr Q2H30M PRN IV PATENCY; Start 10/31/19 at 07:56; Stop 10/31/19 at 19:55; Status DC Info (PHARMACY MONITORING -- do not chart) 1 each PRN DAILY PRN MC SEE COMMENTS; Start 10/31/19 at 08:00; Stop 10/31/19 at 08:01; Status DC Info (PHARMACY MONITORING -- do not chart) 1 each PRN DAILY PRN MC SEE COMMENTS; Start 10/31/19 at 08:00; Stop 10/31/19 at 08:01; Status DC Heparin Sodium (Porcine) (Heparin Sodium) 5,000 unit Q8HRS SQ Last administered on 11/01/19at 06:07; Start 10/31/19 at 22:00 Active Scripts Active Reported Vitamin D3 (Cholecalciferol (Vitamin D3)) 10 Mcg Capsule 2,000 Units PO DAILY Zofran (Ondansetron Hcl) 4 Mg Tablet 1 Tab PO Q8HRS Klor-Con M20 (Potassium Chloride) 20 Meq Tab.er.prt 20 Meq PO DAILY Nifedipine Er (Nifedipine) 60 Mg Tab.er.24 60 Mg PO BID Levothyroxine Sodium 50 Mcg Tablet 50 Mcg PO DAILYAC PRN Labetalol Hcl 200 Mg Tablet 1 Tab PO BID Hydralazine Hcl 100 Mg Tablet 1 Tab PO TID Famotidine 20 Mg Tablet 20 Mg PO BID Bumetanide 1 Mg Tablet 1 Tab PO DAILY Benadryl (Diphenhydramine Hcl) 25 Mg Capsule 2 Cap PO PRN DAILY 30 Days Aspirin Ec (Aspirin) 81 Mg Tablet.dr 1 Tab PO DAILY Albuterol Sulfate Neb Soln (Albuterol Sulfate) 2.5 Mg/3 Ml Vial.neb 1.25 Mg NEB SOA Alprazolam 0.25 Mg Tablet 1 Tab PO PRN TID PRN Vitals/I & O Vital Sign - Last 24 Hours 10/31/19 10/31/19 10/31/19 10/31/19 12:07 12:36 12:39 14:56 Pulse 87 87 87 78 Resp 18 B/P (MAP) 164/94 (117) 164/94 164/94 137/62 Pulse Ox 94 O2 Delivery Room Air 10/31/19 10/31/19 10/31/19 10/31/19 14:57 19:00 19:27 20:45 Temp 98.6 97.6 98.6 97.6 Pulse 77 83 83 Resp 16 18 B/P (MAP) 137/62 (87) 164/76 (105) 164/76 Pulse Ox 97 96 O2 Delivery Room Air Room Air Room Air 6/10/31/19 10/31/19 11/01/19 20:45 20:46 23:00 03:11 Temp 97.5 98.2 97.5 98.2 Pulse 83 83 77 81 Resp 19 19 B/P (MAP) 164/76 164/76 155/73 (100) 140/66 (90) Pulse Ox 97 96 O2 Delivery Room Air Room Air 11/01/19 11/01/19 11/01/19 11/01/19 07:00 08:00 08:13 08:13 Temp 98.5 98.5 Pulse 84 84 84 Resp 19 B/P (MAP) 180/84 (116) 180/84 180/84 Pulse Ox 94 O2 Delivery Room Air Room Air 11/01/19 11/01/19 08:14 10:58 Temp 98.3 98.3 Pulse 84 74 Resp 19 B/P (MAP) 180/84 162/74 (103) Pulse Ox 97 O2 Delivery Room Air Intake and Output 10/31/19 10/31/19 11/01/19 15:00 23:00 07:00 Intake Total 360 ml 730 ml 200 ml Output Total 500 ml Balance -140 ml 730 ml 200 ml KALYAN SANTOS MD Nov 01, 2019 11:42
--- NOTE | 2019-11-01 11:53 | PDOC ---
SUBJECTIVE ROS No concerns voiced by RN , Pt comfortable OBJECTIVE Vital Signs Vital Signs Date Time Temp Pulse Resp B/P (MAP) Pulse Ox O2 Delivery O2 Flow Rate FiO2 11/01/19 10:58 98.3 74 19 162/74 (103) 97 Room Air 98.3 I & 0 Intake and Output 11/01/19 07:00 Intake Total 1290 ml Output Total 500 ml Balance 790 ml Intake Oral 1290 ml Output Urine Total 500 ml # Voids 4 PHYSICAL EXAM Physical Exam GENERAL: No apparent distress. HEENT: OM moist NECK: Supple, LUNGS: Clear to auscultation, Non labored HEART: RRR, S1, S2 present. ABDOMEN: Soft, nontender. EXTREMITIES: edema + NEUROLOGIC: Normal speech, normal tone. A & O x3, moves all extremities, no obvious focal deficits. PSYCHIATRIC: Normal affect, normal mood. Stable. SKIN: No ulcerations or rashes, No mishra DIAGNOSIS/ASSESSMENT Assessment & Plan New Onset ESRD - Initiated on HD on 10/29, sent to [facility] by Dr. Ferris 2nd treatment 10/30, Access- has Temp HDC, Tunnelled HDC in am and OP chair time for MWF with Dr. Ferris at [facility] unit Hyponatremia - asymptomatic, Improved HypO kalemia- Monitor, Replace as needed HTN- antihypertensives COMMENT/RELEVANT DATA Meds Current Medications Medications (Trade) Dose Ordered Sig/Arabella Start Time Stop Time Status Last Admin Dose Admin Acetaminophen (Tylenol) 500 mg 1X PRN PRN 10/30/19 15:45 10/31/19 15:44 DC 10/31/19 14:58 500 MG Albumin Human 200 ml @ 200 mls/hr 1X PRN PRN 10/31/19 08:00 10/31/19 13:59 DC Albuterol Sulfate (Ventolin Neb Soln) 1.25 mg RTQID 10/30/19 16:00 10/30/19 19:50 2.5 MG Alprazolam (Xanax) 0.25 mg PRN TID PRN 10/30/19 15:45 11/01/19 08:12 0.25 MG Aspirin (Ecotrin) 81 mg DAILYWBKFT 10/31/19 08:00 11/01/19 08:12 81 MG Bumetanide (Bumex) 1 mg DAILY 10/31/19 09:00 11/01/19 08:13 1 MG Diphenhydramine HCl (Benadryl) 25 mg PRN QHS PRN 10/30/19 15:45 Duloxetine HCl (Cymbalta) 60 mg DAILY 10/31/19 09:00 11/01/19 08:14 60 MG Famotidine (Pepcid) 20 mg QODAY 10/31/19 09:00 10/31/19 12:36 20 MG Heparin Sodium (Porcine) (Heparin Sodium) 5,000 unit Q8HRS 10/31/19 22:00 11/01/19 06:07 5,000 UNIT Hydralazine HCl (Apresoline Inj) 10 mg PRN Q4HRS PRN 10/30/19 18:00 10/30/19 18:11 10 MG Hydralazine HCl (Apresoline) 100 mg TID 10/30/19 21:30 11/01/19 08:14 100 MG Info (PHARMACY MONITORING -- do not chart) 1 each PRN DAILY PRN 10/31/19 08:00 10/31/19 08:01 DC Labetalol HCl (Trandate) 200 mg BID 10/30/19 21:00 11/01/19 08:13 200 MG Levothyroxine Sodium (Synthroid) 50 mcg DAILY06 10/31/19 06:00 11/01/19 06:03 50 MCG Lidocaine HCl (Lidocaine 1% 20ml Vial) 20 ml 1X ONCE 10/30/19 14:30 10/30/19 14:31 DC 10/30/19 14:30 4 ML Nifedipine (Procardia Xl) 60 mg BID 10/30/19 21:00 11/01/19 08:13 60 MG Ondansetron HCl (Zofran Odt) 4 mg PRN Q8HRS PRN 10/30/19 15:45 Potassium Chloride (Klor-Con) 20 meq DAILYWBKFT 10/31/19 08:00 11/01/19 08:13 20 MEQ Sodium Chloride 1,000 ml @ 400 mls/hr Q2H30M PRN 10/31/19 07:56 10/31/19 19:55 DC Sodium Chloride (Normal Saline Flush) 10 ml 1X PRN PRN 10/31/19 08:00 11/01/19 07:59 DC Vitamin D (Vitamin D3) 2,000 unit DAILY 10/31/19 09:00 11/01/19 08:12 2,000 UNIT Lab Laboratory Tests Test 10/31/19 12:03 10/31/19 16:23 10/31/19 20:34 11/01/19 06:40 Glucose (Fingerstick) 102 mg/dL (70-99) 115 mg/dL (70-99) 111 mg/dL (70-99) White Blood Count 7.1 x10^3/uL (4.0-11.0) Red Blood Count 2.74 x10^6/uL (3.50-5.40) Hemoglobin 8.1 g/dL (12.0-15.5) Hematocrit 24.0 % (36.0-47.0) Mean Corpuscular Volume 88 fL (79-100) Mean Corpuscular Hemoglobin 30 pg (25-35) Mean Corpuscular Hemoglobin Concent 34 g/dL (31-37) Red Cell Distribution Width 15.5 % (11.5-14.5) Platelet Count 143 x10^3/uL (140-400) Neutrophils (%) (Auto) 66 % (31-73) Lymphocytes (%) (Auto) 22 % (24-48) Monocytes (%) (Auto) 7 % (0-9) Eosinophils (%) (Auto) 4 % (0-3) Basophils (%) (Auto) 1 % (0-3) Neutrophils # (Auto) 4.7 x10^3/uL (1.8-7.7) Lymphocytes # (Auto) 1.6 x10^3/uL (1.0-4.8) Monocytes # (Auto) 0.5 x10^3/uL (0.0-1.1) Eosinophils # (Auto) 0.3 x10^3/uL (0.0-0.7) Basophils # (Auto) 0.1 x10^3/uL (0.0-0.2) Sodium Level 131 mmol/L (136-145) Potassium Level 3.9 mmol/L (3.5-5.1) Chloride Level 95 mmol/L (98-107) Carbon Dioxide Level 29 mmol/L (21-32) Anion Gap 7 (6-14) Blood Urea Nitrogen 14 mg/dL (7-20) Creatinine 3.0 mg/dL (0.6-1.0) Estimated GFR (Cockcroft-Gault) 15.3 BUN/Creatinine Ratio 5 (6-20) Glucose Level 128 mg/dL (70-99) Calcium Level 8.0 mg/dL (8.5-10.1) Total Bilirubin 0.4 mg/dL (0.2-1.0) Aspartate Amino Transf (AST/SGOT) 24 U/L (15-37) Alanine Aminotransferase (ALT/SGPT) 21 U/L (14-59) Alkaline Phosphatase 73 U/L (46-116) Total Protein 5.2 g/dL (6.4-8.2) Albumin 2.2 g/dL (3.4-5.0) Albumin/Globulin Ratio 0.7 (1.0-1.7) Test 11/01/19 07:23 11/01/19 11:26 Glucose (Fingerstick) 125 mg/dL (70-99) 118 mg/dL (70-99) Results All relevant outside records, renal labs, imaging studies, telemetry/EKG's were reviewed. Justicifation of Admission Dx: Justifications for Admission: Justification of Admission Dx: Yes (Hemodialysis ) Chronic Renal Failure: Renail Failure AN COURTNEY MD Nov 01, 2019 11:53
[2019-11-01] MEDS: ALBUTEROL SULFATE 2.5 MG/3 ML NEBU. NEB SCH ×2 (12:00→20:00)
[2019-11-01] MEDS ORDERED: DOCUSATE SODIUM 100 MG CAPSULE. PO PRN (14:15)
[2019-11-01 14:45] VITALS: BP 129/59
[2019-11-01 19:00] VITALS: BP 178/86
[2019-11-01 23:00] VITALS: BP 176/81
[2019-11-02 02:37] VITALS: BP 161/73
[2019-11-02 04:30] LABS: CALCIUM 8.1 mg/dL (8.5-10.1); CREATININE 3.8 mg/dL (0.6-1.0); GFR 11.6; POTASSIUM 3.8 mmol/L (3.5-5.1)
[2019-11-02] MEDS: LEVOTHYROXINE 50 MCG TABLET PO SCH (06:00)
[2019-11-02] MEDS: HEPARIN for SUB-Q USE 5,000 UNIT/ML VIAL. SQ SCH ×3 (06:00→23:27)
[2019-11-02 07:00] VITALS: BP 179/81
[2019-11-02] MEDS: ASPIRIN ENTERIC COATED 81 MG TABLET.DR. PO SCH (08:00)
[2019-11-02] MEDS: POTASSIUM CHLORIDE 20 MEQ TABLET.ER. PO SCH (08:00)
[2019-11-02 08:14] LABS: PROTHROMBIN TIME PATIENT 12.2 SEC (11.7-14.0)
[2019-11-02] MEDS: LABETALOL HCL 200 MG TABLET PO SCH ×2 (09:00→23:21)
[2019-11-02] MEDS: FAMOTIDINE 20 MG TABLET. PO SCH (09:00)
[2019-11-02] MEDS: CHOLECALCIFEROL (VITAMIN D3) 1,000 UNIT TABLET PO SCH (09:00)
[2019-11-02] MEDS: DULoxetine HCL 30 MG CAPSULE.DR PO SCH (09:00)
[2019-11-02] MEDS: BUMETANIDE 1 MG TABLET. PO SCH (09:00)
[2019-11-02] MEDS: ALBUTEROL SULFATE 2.5 MG/3 ML NEBU. NEB SCH ×3 (09:23→19:10)
--- NOTE | 2019-11-02 09:24 | PDOC ---
PROGRESS NOTES Chief Complaint Chief Complaint A/P: End-stage renal disease - Successful ultrasound-guided placement of right internal jugular temporary dialysis catheter 10/29. Initiated on HD on 10/29, sent to [facility] by Dr. Ferris, 2nd treatment 10/30, Access- has Temp HDC, OP chair time for MWF with Dr. Ferris at [facility] unit DIABETES Severe protein-caloric malnutrition Hyponatremia - asymptomatic, Improved HypO kalemia- Monitor, Replace as needed HTN- antihypertensives PLAN 26 MIN PT EXAM, CHART REVIEW, > 50% of time spent with exam, chart review, pt care coordination History of Present Illness History of Present Illness Ms Wilkins is a 74yo F w/ PMHx CKD, DM2, HTN who was sent in to ED because of abnormal labs by nephrology in order to initiate HD. Creatinine 6.2, which puts her GFR around 10%. S/p temporary HD catheter, labs improved. Overnight afebrile. She is asking for breakfast. N.p.o. for tunneled dialysis catheter insertion. No CP or S OB. Vitals Vitals Vital Signs Date Time Temp Pulse Resp B/P (MAP) Pulse Ox O2 Delivery O2 Flow Rate FiO2 11/02/19 07:00 98.6 84 18 179/81 (113) 95 Room Air 98.6 Physical Exam Physical Exam light and accommodation MUSCULOSKELETAL: Well developed, well nourished, good range of motion ENDOCRINE: No thyromegaly was palpated LYMPHATICS: No cervical chain or axillary nodes were noted HEMATOPOIETIC: No bruising NECK: Supple, no JVD, no thyromegaly was noted. LUNGS: Clear to auscultation in all lung melendez without rhonchi or wheezing. HEART: RRR, S1, S2 present. Peripheral pulses intact, no obvious murmurs were noted. ABDOMEN: Soft, nontender. Positive bowel sounds no organomegaly, normal bowel sounds. EXTREMITIES: Without any cyanosis, clubbing, or edema. Pedal pulses intact, Homans sign is negative. NEUROLOGIC: Normal speech, normal tone. A & O x3, moves all extremities, no obvious focal deficits. PSYCHIATRIC: Normal affect, normal mood. Stable. SKIN: No ulcerations or rashes, good skin turgor, no jaundice. VASCULAR: Good capillary refill, neurovascular bundle appears to be intact. General: Alert, Oriented X3, Cooperative, No acute distress, Other (only fair memory) Heart: Regular rate Lungs: Clear Abdomen: Normal bowel sounds, Soft, No tenderness Extremities: No clubbing, No cyanosis Skin: No significant lesion Labs LABS Laboratory Tests Test 11/01/19 11:26 11/01/19 16:19 11/01/19 20:29 11/02/19 03:50 Glucose (Fingerstick) 118 mg/dL (70-99) 113 mg/dL (70-99) 125 mg/dL (70-99) Prothrombin Time 12.2 SEC (11.7-14.0) Prothromb Time International Ratio 0.9 (0.8-1.1) Activated Partial Thromboplast Time 28 SEC (24-38) Test 11/02/19 03:51 11/02/19 08:41 Sodium Level 131 mmol/L (136-145) Potassium Level 3.8 mmol/L (3.5-5.1) Chloride Level 98 mmol/L (98-107) Carbon Dioxide Level 27 mmol/L (21-32) Anion Gap 6 (6-14) Blood Urea Nitrogen 18 mg/dL (7-20) Creatinine 3.8 mg/dL (0.6-1.0) Estimated GFR (Cockcroft-Gault) 11.6 Glucose Level 106 mg/dL (70-99) Calcium Level 8.1 mg/dL (8.5-10.1) Glucose (Fingerstick) 118 mg/dL (70-99) Assessment and Plan Assessmemt and Plan Problems Medical Problems: (1) Hyponatremia Status: Acute (2) Kidney failure Status: Acute Comment Review of Relevant I have reviewed the following items parker (where applicable) has been applied. Labs Laboratory Tests Test 10/31/19 12:03 10/31/19 16:23 10/31/19 20:34 11/01/19 06:40 Glucose (Fingerstick) 102 mg/dL (70-99) 115 mg/dL (70-99) 111 mg/dL (70-99) White Blood Count 7.1 x10^3/uL (4.0-11.0) Red Blood Count 2.74 x10^6/uL (3.50-5.40) Hemoglobin 8.1 g/dL (12.0-15.5) Hematocrit 24.0 % (36.0-47.0) Mean Corpuscular Volume 88 fL (79-100) Mean Corpuscular Hemoglobin 30 pg (25-35) Mean Corpuscular Hemoglobin Concent 34 g/dL (31-37) Red Cell Distribution Width 15.5 % (11.5-14.5) Platelet Count 143 x10^3/uL (140-400) Neutrophils (%) (Auto) 66 % (31-73) Lymphocytes (%) (Auto) 22 % (24-48) Monocytes (%) (Auto) 7 % (0-9) Eosinophils (%) (Auto) 4 % (0-3) Basophils (%) (Auto) 1 % (0-3) Neutrophils # (Auto) 4.7 x10^3/uL (1.8-7.7) Lymphocytes # (Auto) 1.6 x10^3/uL (1.0-4.8) Monocytes # (Auto) 0.5 x10^3/uL (0.0-1.1) Eosinophils # (Auto) 0.3 x10^3/uL (0.0-0.7) Basophils # (Auto) 0.1 x10^3/uL (0.0-0.2) Sodium Level 131 mmol/L (136-145) Potassium Level 3.9 mmol/L (3.5-5.1) Chloride Level 95 mmol/L (98-107) Carbon Dioxide Level 29 mmol/L (21-32) Anion Gap 7 (6-14) Blood Urea Nitrogen 14 mg/dL (7-20) Creatinine 3.0 mg/dL (0.6-1.0) Estimated GFR (Cockcroft-Gault) 15.3 BUN/Creatinine Ratio 5 (6-20) Glucose Level 128 mg/dL (70-99) Calcium Level 8.0 mg/dL (8.5-10.1) Total Bilirubin 0.4 mg/dL (0.2-1.0) Aspartate Amino Transf (AST/SGOT) 24 U/L (15-37) Alanine Aminotransferase (ALT/SGPT) 21 U/L (14-59) Alkaline Phosphatase 73 U/L (46-116) Total Protein 5.2 g/dL (6.4-8.2) Albumin 2.2 g/dL (3.4-5.0) Albumin/Globulin Ratio 0.7 (1.0-1.7) Test 11/01/19 07:23 11/01/19 11:26 11/01/19 16:19 11/01/19 20:29 Glucose (Fingerstick) 125 mg/dL (70-99) 118 mg/dL (70-99) 113 mg/dL (70-99) 125 mg/dL (70-99) Test 11/02/19 03:50 11/02/19 03:51 11/02/19 08:41 Prothrombin Time 12.2 SEC (11.7-14.0) Prothromb Time International Ratio 0.9 (0.8-1.1) Activated Partial Thromboplast Time 28 SEC (24-38) Sodium Level 131 mmol/L (136-145) Potassium Level 3.8 mmol/L (3.5-5.1) Chloride Level 98 mmol/L (98-107) Carbon Dioxide Level 27 mmol/L (21-32) Anion Gap 6 (6-14) Blood Urea Nitrogen 18 mg/dL (7-20) Creatinine 3.8 mg/dL (0.6-1.0) Estimated GFR (Cockcroft-Gault) 11.6 Glucose Level 106 mg/dL (70-99) Calcium Level 8.1 mg/dL (8.5-10.1) Glucose (Fingerstick) 118 mg/dL (70-99) Laboratory Tests Test 11/01/19 11:26 11/01/19 16:19 11/01/19 20:29 11/02/19 03:50 Glucose (Fingerstick) 118 mg/dL (70-99) 113 mg/dL (70-99) 125 mg/dL (70-99) Prothrombin Time 12.2 SEC (11.7-14.0) Prothromb Time International Ratio 0.9 (0.8-1.1) Activated Partial Thromboplast Time 28 SEC (24-38) Test 11/02/19 03:51 11/02/19 08:41 Sodium Level 131 mmol/L (136-145) Potassium Level 3.8 mmol/L (3.5-5.1) Chloride Level 98 mmol/L (98-107) Carbon Dioxide Level 27 mmol/L (21-32) Anion Gap 6 (6-14) Blood Urea Nitrogen 18 mg/dL (7-20) Creatinine 3.8 mg/dL (0.6-1.0) Estimated GFR (Cockcroft-Gault) 11.6 Glucose Level 106 mg/dL (70-99) Calcium Level 8.1 mg/dL (8.5-10.1) Glucose (Fingerstick) 118 mg/dL (70-99) Medications Current Medications Lidocaine HCl (Lidocaine 1% 20ml Vial) 20 ml STK-MED ONCE .ROUTE ; Start 10/30/19 at 14:03; Stop 10/30/19 at 14:03; Status DC Lidocaine HCl (Lidocaine 1% 20ml Vial) 20 ml 1X ONCE INJ Last administered on 10/30/19at 14:30; Start 10/30/19 at 14:30; Stop 10/30/19 at 14:31; Status DC Sodium Chloride 1,000 ml @ 1,000 mls/hr Q1H PRN IV hypotension; Start 10/30/19 at 15:37; Stop 10/30/19 at 21:36; Status DC Acetaminophen (Tylenol) 500 mg 1X PRN PRN PO MILD PAIN / TEMP > 100.3'F Last administered on 10/31/19at 14:58; Start 10/30/19 at 15:45; Stop 10/31/19 at 15:44; Status DC Diphenhydramine HCl (Benadryl) 25 mg 1X PRN PRN IV ITCHING; Start 10/30/19 at 15:45; Stop 10/31/19 at 15:44; Status DC Diphenhydramine HCl (Benadryl) 25 mg 1X PRN PRN IV ITCHING; Start 10/30/19 at 15:45; Stop 10/31/19 at 15:44; Status DC Sodium Chloride 1,000 ml @ 400 mls/hr Q2H30M PRN IV PATENCY; Start 10/30/19 at 15:37; Stop 10/31/19 at 03:36; Status DC Info (PHARMACY MONITORING -- do not chart) 1 each PRN DAILY PRN MC SEE COMMENTS; Start 10/30/19 at 15:45 Albuterol Sulfate (Ventolin Neb Soln) 1.25 mg RTQID NEB Last administered on 11/01/19at 20:00; Start 10/30/19 at 16:00 Alprazolam (Xanax) 0.25 mg PRN TID PRN PO ANXIETY / AGITATION Last administered on 11/01/19 08:12; Start 10/30/19 at 15:45 Aspirin (Ecotrin) 81 mg DAILYWBKFT PO Last administered on 11/01/19at 08:12; Start 10/31/19 at 08:00 Diphenhydramine HCl (Benadryl) 25 mg PRN QHS PRN PO INSOMNIA; Start 10/30/19 at 15:45 Bumetanide (Bumex) 1 mg DAILY PO Last administered on 11/01/19at 08:13; Start 10/31/19 at 09:00 Vitamin D (Vitamin D3) 2,000 unit DAILY PO Last administered on 11/01/19 08:12; Start 10/31/19 at 09:00 Duloxetine HCl (Cymbalta) 60 mg DAILY PO Last administered on 11/01/19at 08:14; Start 10/31/19 at 09:00 Famotidine (Pepcid) 20 mg QODAY PO Last administered on 10/31/19at 12:36; Start 10/31/19 at 09:00 Hydralazine HCl (Apresoline) 100 mg TID PO ; Start 10/30/19 at 21:00; Stop 10/30/19 at 21:08; Status DC Labetalol HCl (Trandate) 200 mg BID PO Last administered on 11/01/19at 21:00; Start 10/30/19 at 21:00 Levothyroxine Sodium (Synthroid) 50 mcg DAILY06 PO Last administered on 11/01/19at 06:03; Start 10/31/19 at 06:00 Nifedipine (Procardia Xl) 60 mg BID PO Last administered on 11/01/19at 21:00; Start 10/30/19 at 21:00 Potassium Chloride (Klor-Con) 20 meq DAILYWBKFT PO Last administered on 11/01/19at 08:13; Start 10/31/19 at 08:00 Ondansetron HCl (Zofran Odt) 4 mg PRN Q8HRS PRN PO NAUSEA/VOMITING; Start at 15:45 Hydralazine HCl (Apresoline Inj) 10 mg PRN Q4HRS PRN IVP ELEVATED BP, SEE COMMENTS Last administered on 10/30/19at 18:11; Start 10/30/19 at 18:00 Hydralazine HCl (Apresoline) 100 mg TID PO Last administered on 11/01/19at 21:00; Start 10/30/19 at 21:30 Sodium Chloride 1,000 ml @ 1,000 mls/hr Q1H PRN IV hypotension; Start 10/31/19 at 07:56; Stop 10/31/19 at 13:55; Status DC Albumin Human 200 ml @ 200 mls/hr 1X PRN PRN IV Hypotension; Start 10/31/19 at 08:00; Stop 10/31/19 at 13:59; Status DC Sodium Chloride (Normal Saline Flush) 10 ml 1X PRN PRN IV AP catheter pack; Start 10/31/19 at 08:00; Stop 11/01/19 at 07:59; Status DC Sodium Chloride (Normal Saline Flush) 10 ml 1X PRN PRN IV CLAIMS ADMINISTRATOR catheter pack; Start 10/31/19 at 08:00; Stop 11/01/19 at 07:59; Status DC Sodium Chloride 1,000 ml @ 400 mls/hr Q2H30M PRN IV PATENCY; Start 10/31/19 at 07:56; Stop 10/31/19 at 19:55; Status DC Info (PHARMACY MONITORING -- do not chart) 1 each PRN DAILY PRN MC SEE COMMENTS; Start 10/31/19 at 08:00; Stop 10/31/19 at 08:01; Status DC Info (PHARMACY MONITORING -- do not chart) 1 each PRN DAILY PRN MC SEE COMMENTS; Start 10/31/19 at 08:00; Stop 10/31/19 at 08:01; Status DC Heparin Sodium (Porcine) (Heparin Sodium) 5,000 unit Q8HRS SQ Last administered on 11/01/19at 14:53; Start 10/31/19 at 22:00 Docusate Sodium (Colace) 100 mg PRN DAILY PRN PO HARD STOOLS Last administered on 11/01/19at 14:43; Start 11/01/19 at 14:15 Active Scripts Active Reported Vitamin D3 (Cholecalciferol (Vitamin D3)) 10 Mcg Capsule 2,000 Units PO DAILY Zofran (Ondansetron Hcl) 4 Mg Tablet 1 Tab PO Q8HRS Klor-Con M20 (Potassium Chloride) 20 Meq Tab.er.prt 20 Meq PO DAILY Nifedipine Er (Nifedipine) 60 Mg Tab.er.24 60 Mg PO BID Levothyroxine Sodium 50 Mcg Tablet 50 Mcg PO DAILYAC PRN Labetalol Hcl 200 Mg Tablet 1 Tab PO BID Hydralazine Hcl 100 Mg Tablet 1 Tab PO TID Famotidine 20 Mg Tablet 20 Mg PO BID Bumetanide 1 Mg Tablet 1 Tab PO DAILY Benadryl (Diphenhydramine Hcl) 25 Mg Capsule 2 Cap PO PRN DAILY 30 Days Aspirin Ec (Aspirin) 81 Mg Tablet.dr 1 Tab PO DAILY Albuterol Sulfate Neb Soln (Albuterol Sulfate) 2.5 Mg/3 Ml Vial.neb 1.25 Mg NEB SOA Alprazolam 0.25 Mg Tablet 1 Tab PO PRN TID PRN Vitals/I & O Vital Sign - Last 24 Hours 11/01/19 11/01/19 11/01/19 11/01/19 10:58 13:09 14:45 19:00 Temp 98.3 98.7 97.8 98.3 98.7 97.8 Pulse 74 74 77 85 Resp 19 19 B/P (MAP) 162/74 (103) 162/74 129/59 (82) 178/86 (116) Pulse Ox 97 95 96 O2 Delivery Room Air Room Air Room Air 11/01/19 11/01/19 11/01/19 11/01/19 20:10 20:26 21:00 21:00 Pulse 78 78 B/P (MAP) 161/73 161/73 Pulse Ox 97 O2 Delivery Room Air Room Air 11/01/19 11/01/19 11/02/19 11/02/19 21:00 23:00 02:37 07:00 Temp 97.7 97.7 98.6 97.7 97.7 98.6 Pulse 78 90 78 84 Resp 19 19 18 B/P (MAP) 161/73 176/81 (112) 161/73 (102) 179/81 (113) Pulse Ox 97 95 95 O2 Delivery Room Air Room Air Room Air Intake and Output 11/01/19 11/01/19 11/02/19 15:00 23:00 07:00 Intake Total 360 ml 700 ml 100 ml Output Total 450 ml Balance -90 ml 700 ml 100 ml RIFFESERGE Menjivar MD Nov 02, 2019 09:24
[2019-11-02 11:00] VITALS: BP 181/84
[2019-11-02] MEDS ORDERED: LIDOCAINE 1%/EPI 1:100,000 20 ML VIAL. ONE (11:27)
[2019-11-02] MEDS ORDERED: fentaNYL PF VIAL 100 MCG/2 ML VIAL ONE (11:40)
[2019-11-02] MEDS ORDERED: ceFAZolin SODIUM IV Push 1 GM VIAL. IVP ONE ×2 (11:40→12:00)
[2019-11-02] MEDS ORDERED: MIDAZOLAM HCL/PF 2 MG/2 ML VIAL. ONE (11:40)
[2019-11-02] MEDS ORDERED: IV NORMAL SALINE 1000ML BAG 1,000 ML IV PRN ×2 (11:51)
[2019-11-02] MEDS ORDERED: LIDOCAINE 1%/EPI 1:100,000 20 ML VIAL. INJ ONE (12:00)
[2019-11-02] MEDS ORDERED: MIDAZOLAM HCL/PF 2 MG/2 ML VIAL. IV ONE (12:00)
[2019-11-02] MEDS ORDERED: diphenhydrAMINE 50 MG/ML VIAL IV PRN ×2 (12:00)
[2019-11-02] MEDS ORDERED: fentaNYL PF VIAL 100 MCG/2 ML VIAL IV ONE (12:00)
[2019-11-02] MEDS ORDERED: DIALYSIS PATIENT. MC PRN (12:00)
--- NOTE | 2019-11-02 12:12 | NUR ---
Patient to IR for temp to tunneled HD catheter. Vitals stable, patient tolerated well with no complications. Report called to [facility] on and patient transferred to dialysis suite.
--- NOTE | 2019-11-02 12:17 | PDOC ---
Renal-Progress Notes Subjective Notes Notes NO NEW COMPLAINTS History of Present Illness Hx of present illness STABLE Vitals Vitals Vital Signs Date Time Temp Pulse Resp B/P (MAP) Pulse Ox O2 Delivery O2 Flow Rate FiO2 11/02/19 12:00 14 99 Nasal Cannula 2.0 11/02/19 11:00 98.4 82 181/84 (116) 98.4 Weight Weight [ ] I.O. Intake and Output Intake and Output 11/02/19 07:00 Intake Total 1160 ml Output Total 450 ml Balance 710 ml Intake Oral 1160 ml Output Urine Total 450 ml # Voids 2 Labs Labs Laboratory Tests Test 11/01/19 16:19 11/01/19 20:29 11/02/19 03:50 11/02/19 03:51 Glucose (Fingerstick) 113 mg/dL (70-99) 125 mg/dL (70-99) Prothrombin Time 12.2 SEC (11.7-14.0) Prothromb Time International Ratio 0.9 (0.8-1.1) Activated Partial Thromboplast Time 28 SEC (24-38) Sodium Level 131 mmol/L (136-145) Potassium Level 3.8 mmol/L (3.5-5.1) Chloride Level 98 mmol/L (98-107) Carbon Dioxide Level 27 mmol/L (21-32) Anion Gap 6 (6-14) Blood Urea Nitrogen 18 mg/dL (7-20) Creatinine 3.8 mg/dL (0.6-1.0) Estimated GFR (Cockcroft-Gault) 11.6 Glucose Level 106 mg/dL (70-99) Calcium Level 8.1 mg/dL (8.5-10.1) Test 11/02/19 08:41 Glucose (Fingerstick) 118 mg/dL (70-99) Review of Systems Constitutional: yes: weakness, alert, oriented Ears/Nose/Throat: Yes: no symptom reported Eyes: Yes: no symptom reported Pulmonary: Yes no symptom reported Gastrointestional: Yes: no symptom reported Genitourinary: Yes: no symptom reported Musculoskeletal: Yes: no symptom reported Skin: Yes no symptom reported Psychiatric/Neurological: Yes: no symptom reported Physical Exam General Appearance: no apparent distress Skin: warm Respiratory: bilateral CTA Heart: S1S2 Abdomen: soft, bowel sounds present Genitourinary: bladder flat Extremities: pulses present Neurology: alert, oriented Assessment Assessment IMP NEW ESRD ANEMIA HTN HX ELECTROLYTE IMBALANCE-CORRECTED ? MILD DEMENTIA PLAN CONVERT TEMP TO TDC TODAY START ARANESP HD TODAY UF TO DW OP HD TO BE SET UP AT [facility] WILL FOLLOW LINDA CHÁVEZ MD Nov 02, 2019 12:17
--- NOTE | 2019-11-02 12:18 | RAD ---
Conversion of right internal jugular temporary dialysis catheter to a tunneled hemodialysis catheter Indication: Longer term dialysis access needed Procedure: The procedure was explained in its entirety to the patient or the patients designated support representative by a member of the treatment team, including a discussion of the risks, benefits and commonly accepted alternatives to the procedure, as well as the expected consequences of no therapy whatsoever. Discussion of the risks included, but was not limited to, those that are most frequent and those that are rare but possibly severe or life-threatening, as well as the possibility of unforeseen complications. All elements of maximal sterile barrier technique including the use of a cap, mask, sterile gown, sterile gloves, large sterile sheet, appropriate hand hygiene, and 2% chlorhexidine for cutaneous antisepsis (or acceptable alternative antiseptic per current guidelines) were followed for this procedure. The pre-existing catheter was evaluated under fluoroscopy and found to be normal in position. A guidewire was advanced into the IVC. A 23 cm tip to cuff tunneled hemodialysis catheter was advanced from small dermatotomy, several centimeters inferior to the pre-existing catheter entry site, to the venotomy site. The pre-existing catheter was removed over the guidewire and a peel-away sheath placed. The new tunneled catheter was advanced through the peel-away sheath such that its tip was positioned in the proximal right atrium with the patient supine. The sheath was removed. The new catheter was found to flush and aspirate normally. Catheter was flushed, and secured in place. Sterile dressings were applied. No immediate complications were identified. Total fluoroscopy time: 0.2 min Dose area product: 1 Gycm2 The procedure was performed under conscious sedation including continuous cardiopulmonary monitoring via dedicated sedation nurse. [id number] sedation time: 20 minutes Impression: Conversion of a right internal jugular temporary dialysis catheter to a tunneled dialysis catheter
--- NOTE | 2019-11-02 14:00 | NUR ---
SS following for discharge planning. SS reviewed pt chart and discussed with pt RN. Pt is from home with spouse and is currently on room air. Pt needing outpatient dialysis set up at discharge. SS currently awaiting chest x-ray and COVID19 test results. SS will continue to follow for discharge planning.
[2019-11-02] MEDS: hydrALAZINE 20 MG/ML VIAL. IVP PRN (16:45)
[2019-11-02 19:00] VITALS: BP 162/83
--- NOTE | 2019-11-02 20:17 | RAD ---
CHEST AP ONLY 11/02/2019 12:00 AM INDICATION: Hemodialysis COMPARISON: 03/14/2005 TECHNIQUE: Portable frontal view of the chest is provided. FINDINGS: The cardiomediastinal silhouette is within normal limits. Right chest wall double-lumen catheter is identified with the distal tip projecting over the cavoatrial junction. Small bilateral pleural effusions with adjacent compressive atelectasis versus infiltrate. No significant pulmonary vascular congestion or pneumothorax. No suspicious osseous abnormality. IMPRESSION: Small bilateral pleural effusions, right greater than left, with adjacent compressive atelectasis versus infiltrates. Electronically signed by: Praveena Rivers MD (11/02/2019 8:14 PM) CRISTOBAL
[2019-11-02] MEDS ORDERED: DARBEPOETIN ALFA 60 MCG/0.3 ML DISP.SYRIN. SQ SCH (21:00)
[2019-11-02 23:14] VITALS: BP 200/100
[2019-11-03 03:35] VITALS: BP 179/82
[2019-11-03] MEDS: hydrALAZINE 20 MG/ML VIAL. IVP PRN (04:27)
--- NOTE | 2019-11-03 05:35 | NUR ---
Patient has been moved from rm 256 to 258, as pt in nearby room is yelling, 'kept me awake all night last night' Patient was moved at approximately 1940 11/02/2019. Patient called to notify her family members of the transfer.
--- NOTE | 2019-11-03 05:39 | NUR ---
Patient has been informed to void in the specimen hat in the toilet, but through the night, has missed the hat, so does not have an accurate I & O.
[2019-11-03] MEDS: LEVOTHYROXINE 50 MCG TABLET PO SCH (05:49)
[2019-11-03] MEDS: HEPARIN for SUB-Q USE 5,000 UNIT/ML VIAL. SQ SCH ×2 (05:53→14:00)
[2019-11-03 07:00] VITALS: BP 179/87
[2019-11-03] MEDS: ALBUTEROL SULFATE 2.5 MG/3 ML NEBU. NEB SCH ×3 (07:56→15:56)
--- NOTE | 2019-11-03 08:12 | NUR ---
SS following up with discharge planning. SS phoned and faxed referral for outpatient dialysis to [facility], ; fax [phone]. SS currently awaiting COVID19 test results to complete referral. SS will continue to follow for discharge planning.
[2019-11-03] MEDS: DULoxetine HCL 30 MG CAPSULE.DR PO SCH (09:00)
[2019-11-03] MEDS: CHOLECALCIFEROL (VITAMIN D3) 1,000 UNIT TABLET PO SCH (09:11)
[2019-11-03] MEDS: FAMOTIDINE 20 MG TABLET. PO SCH (09:11)
[2019-11-03] MEDS: POTASSIUM CHLORIDE 20 MEQ TABLET.ER. PO SCH (09:12)
[2019-11-03] MEDS: ASPIRIN ENTERIC COATED 81 MG TABLET.DR. PO SCH (09:12)
[2019-11-03] MEDS: BUMETANIDE 1 MG TABLET. PO SCH (09:12)
[2019-11-03] MEDS: LABETALOL HCL 200 MG TABLET PO SCH (09:12)
[2019-11-03 11:00] VITALS: BP 156/57
--- NOTE | 2019-11-03 11:33 | NUR ---
SS following up with discharge planning. SS received phone contact from [facility], ; fax [phone], stating that they were not able to place pt at the [facility] due to being at capacity. [facility] reported that they have placed pt on a waiting list for the [facility] and pt is currently third on the waiting list for chair time. [facility] reported that pt has been tentatively placed at [facility], [address] [place] [address], ; fax [phone], Saturday, , and Saturday. [facility] to contact SS once confirmed chair time has been received. [facility] requested results of COVID19 test. SS will fax test results once received. SS will continue to follow for discharge planning.
--- NOTE | 2019-11-03 11:50 | PDOC ---
Renal-Progress Notes Subjective Notes Notes CONFUSED History of Present Illness Hx of present illness NO CHANGES Vitals Vitals Vital Signs Date Time Temp Pulse Resp B/P (MAP) Pulse Ox O2 Delivery O2 Flow Rate FiO2 11/03/19 11:00 98.9 78 18 156/57 (90) 94 Room Air 98.9 11/02/19 12:00 2.0 Weight Weight [ ] I.O. Intake and Output Intake and Output 11/03/19 07:00 Intake Total 1150 ml Output Total 450 ml Balance 700 ml Intake Oral 1150 ml Output Urine Total 450 ml # Voids 3 Labs Labs Laboratory Tests Test 11/02/19 17:10 11/02/19 20:47 11/03/19 07:54 Glucose (Fingerstick) 99 mg/dL (70-99) 120 mg/dL (70-99) 126 mg/dL (70-99) Review of Systems Constitutional: yes: weakness, alert, oriented Ears/Nose/Throat: Yes: no symptom reported Eyes: Yes: no symptom reported Pulmonary: Yes no symptom reported Gastrointestional: Yes: no symptom reported Genitourinary: Yes: no symptom reported Musculoskeletal: Yes: no symptom reported Skin: Yes no symptom reported Psychiatric/Neurological: Yes: no symptom reported Physical Exam General Appearance: no apparent distress Skin: warm Respiratory: bilateral CTA Heart: S1S2 Abdomen: soft, bowel sounds present Genitourinary: bladder flat Extremities: pulses present Neurology: alert, oriented Assessment Assessment IMP NEW ESRD S/P TUNNELED HD CATHETER ANEMIA HTN HX ELECTROLYTE IMBALANCE-CORRECTED ? MILD DEMENTIA PLAN CONVERT TEMP TO TDC TODAY STARTED [facility]ESP HD TOMORROW OP HD TO BE SET UP WILL FOLLOW LINDA CHÁVEZ MD Nov 03, 2019 11:50
--- NOTE | 2019-11-03 12:37 | PDOC ---
PROGRESS NOTES Chief Complaint Chief Complaint A/P: End-stage renal disease - Successful ultrasound-guided placement of right internal jugular temporary dialysis catheter 10/29. Initiated on HD on 10/29, sent to [facility] by Dr. Ferris, 2nd treatment 10/30, Access- has Temp HDC, OP chair time for MWF with Dr. Ferris at [facility] unit DIABETES Severe protein-caloric malnutrition Hyponatremia - asymptomatic, Improved HypO kalemia- Monitor, Replace as needed HTN- antihypertensives PLAN 26 MIN PT EXAM, CHART REVIEW, > 50% of time spent with exam, chart review, pt care coordination History of Present Illness History of Present Illness Ms Wilkins is a 74yo F w/ PMHx CKD, DM2, HTN who was sent in to ED because of abnormal labs by nephrology in order to initiate HD. Creatinine 6.2, which puts her GFR around 10%. S/p temporary HD catheter, labs improved. 11/01: Overnight afebrile. She is asking for breakfast. N.p.o. for tunneled dialysis catheter insertion. No CP or S OB. Tolerated tunneled line and dialysis well. Afebrile overnight. No SOB or CP. She is asking to leave. Awaiting COVID 19 test results and she is on a waiting list for [facility], plans to go to [facility] on discharge once COVID-19 results return. Vitals Vitals Vital Signs Date Time Temp Pulse Resp B/P (MAP) Pulse Ox O2 Delivery O2 Flow Rate FiO2 11/03/19 11:50 Room Air 11/03/19 11:00 98.9 78 18 156/57 (90) 94 98.9 11/02/19 12:00 2.0 Physical Exam Physical Exam light and accommodation MUSCULOSKELETAL: Well developed, well nourished, good range of motion ENDOCRINE: No thyromegaly was palpated LYMPHATICS: No cervical chain or axillary nodes were noted HEMATOPOIETIC: No bruising NECK: Supple, no JVD, no thyromegaly was noted. LUNGS: Clear to auscultation in all lung melendez without rhonchi or wheezing. HEART: RRR, S1, S2 present. Peripheral pulses intact, no obvious murmurs were noted. ABDOMEN: Soft, nontender. Positive bowel sounds no organomegaly, normal bowel sounds. EXTREMITIES: Without any cyanosis, clubbing, or edema. Pedal pulses intact, Homans sign is negative. NEUROLOGIC: Normal speech, normal tone. A & O x3, moves all extremities, no obvious focal deficits. PSYCHIATRIC: Normal affect, normal mood. Stable. SKIN: No ulcerations or rashes, good skin turgor, no jaundice. VASCULAR: Good capillary refill, neurovascular bundle appears to be intact. General: Alert, Cooperative, No acute distress, Other (only fair memory) Heart: Regular rate Lungs: Clear Abdomen: Normal bowel sounds, Soft, No tenderness Extremities: No clubbing, No cyanosis Skin: No significant lesion Labs LABS Laboratory Tests Test 11/02/19 17:10 11/02/19 20:47 11/03/19 07:54 11/03/19 12:07 Glucose (Fingerstick) 99 mg/dL (70-99) 120 mg/dL (70-99) 126 mg/dL (70-99) 114 mg/dL (70-99) Assessment and Plan Assessmemt and Plan Problems Medical Problems: (1) Hyponatremia Status: Acute (2) Kidney failure Status: Acute Comment Review of Relevant I have reviewed the following items parker (where applicable) has been applied. Labs Laboratory Tests Test 11/01/19 16:19 11/01/19 20:29 11/02/19 03:50 11/02/19 03:51 Glucose (Fingerstick) 113 mg/dL (70-99) 125 mg/dL (70-99) Prothrombin Time 12.2 SEC (11.7-14.0) Prothromb Time International Ratio 0.9 (0.8-1.1) Activated Partial Thromboplast Time 28 SEC (24-38) Sodium Level 131 mmol/L (136-145) Potassium Level 3.8 mmol/L (3.5-5.1) Chloride Level 98 mmol/L (98-107) Carbon Dioxide Level 27 mmol/L (21-32) Anion Gap 6 (6-14) Blood Urea Nitrogen 18 mg/dL (7-20) Creatinine 3.8 mg/dL (0.6-1.0) Estimated GFR (Cockcroft-Gault) 11.6 Glucose Level 106 mg/dL (70-99) Calcium Level 8.1 mg/dL (8.5-10.1) Test 11/02/19 08:41 11/02/19 17:10 11/02/19 20:47 11/03/19 07:54 Glucose (Fingerstick) 118 mg/dL (70-99) 99 mg/dL (70-99) 120 mg/dL (70-99) 126 mg/dL (70-99) Test 11/03/19 12:07 Glucose (Fingerstick) 114 mg/dL (70-99) Laboratory Tests Test 11/02/19 17:10 11/02/19 20:47 11/03/19 07:54 11/03/19 12:07 Glucose (Fingerstick) 99 mg/dL (70-99) 120 mg/dL (70-99) 126 mg/dL (70-99) 114 mg/dL (70-99) Medications Current Medications Lidocaine HCl (Lidocaine 1% 20ml Vial) 20 ml STK-MED ONCE .ROUTE ; Start 10/30/19 at 14:03; Stop 10/30/19 at 14:03; Status DC Lidocaine HCl (Lidocaine 1% 20ml Vial) 20 ml 1X ONCE INJ Last administered on 10/30/19at 14:30; Start 10/30/19 at 14:30; Stop 10/30/19 at 14:31; Status DC Sodium Chloride 1,000 ml @ 1,000 mls/hr Q1H PRN IV hypotension; Start 10/30/19 at 15:37; Stop 10/30/19 at 21:36; Status DC Acetaminophen (Tylenol) 500 mg 1X PRN PRN PO MILD PAIN / TEMP > 100.3'F Last administered on 10/31/19at 14:58; Start 10/30/19 at 15:45; Stop 10/31/19 at 15:44; Status DC Diphenhydramine HCl (Benadryl) 25 mg 1X PRN PRN IV ITCHING; Start 10/30/19 at 15:45; Stop 10/31/19 at 15:44; Status DC Diphenhydramine HCl (Benadryl) 25 mg 1X PRN PRN IV ITCHING; Start 10/30/19 at 15:45; Stop 10/31/19 at 15:44; Status DC Sodium Chloride 1,000 ml @ 400 mls/hr Q2H30M PRN IV PATENCY; Start 10/30/19 at 15:37; Stop 10/31/19 at 03:36; Status DC Info (PHARMACY MONITORING -- do not chart) 1 each PRN DAILY PRN MC SEE COMME NTS; Start 10/30/19 at 15:45; Stop 11/02/19 at 19:51; Status DC Albuterol Sulfate (Ventolin Neb Soln) 1.25 mg RTQID NEB Last administered on 11/03/19at 11:49; Start 10/30/19 at 16:00 Alprazolam (Xanax) 0.25 mg PRN TID PRN PO ANXIETY / AGITATION Last administered on 11/01/19at 08:12; Start 10/30/19 at 15:45; Stop 11/02/19 at 09:25; Status DC Aspirin (Ecotrin) 81 mg DAILYWBKFT PO Last administered on 11/03/19at 09:12; Start 10/31/19 at 08:00 Diphenhydramine HCl (Benadryl) 25 mg PRN QHS PRN PO INSOMNIA Last administered on 11/02/19at 23:19; Start 10/30/19 at 15:45 Bumetanide (Bumex) 1 mg DAILY PO Last administered on 11/03/19at 09:12; Start 10/31/19 at 09:00 Vitamin D (Vitamin D3) 2,000 unit DAILY PO Last administered on 11/03/19at 09:11; Start 10/31/19 at 09:00 Duloxetine HCl (Cymbalta) 60 mg DAILY PO Last administered on 11/03/19at 09:00; Start 10/31/19 at 09:00 Famotidine (Pepcid) 20 mg QODAY PO Last administered on 11/03/19at 09:11; Start 10/31/19 at 09:00 Hydralazine HCl (Apresoline) 100 mg TID PO ; Start 10/30/19 at 21:00; Stop 10/30/19 at 21:08; Status DC Labetalol HCl (Trandate) 200 mg BID PO Last administered on 11/03/19at 09:12; Start 10/30/19 at 21:00 Levothyroxine Sodium (Synthroid) 50 mcg DAILY06 PO Last administered on 11/03/19at 05:49; Start 10/31/19 at 06:00 Nifedipine (Procardia Xl) 60 mg BID PO Last administered on 11/03/19at 09:10; Start 10/30/19 at 21:00 Potassium Chloride (Klor-Con) 20 meq DAILYWBKFT PO Last administered on 11/03/19at 09:12; Start 10/31/19 at 08:00 Ondansetron HCl (Zofran Odt) 4 mg PRN Q8HRS PRN PO NAUSEA/VOMITING; Start 10/30/19 at 15:45 Hydralazine HCl (Apresoline Inj) 10 mg PRN Q4HRS PRN IVP ELEVATED BP, SEE COMMENTS Last administered on 11/03/19at 04:27; Start 10/30/19 at 18:00 Hydralazine HCl (Apresoline) 100 mg TID PO Last administered on 11/03/19at 09:11; Start 10/30/19 at 21:30 Sodium Chloride 1,000 ml @ 1,000 mls/hr Q1H PRN IV hypotension; Start 10/31/19 at 07:56; Stop 10/31/19 at 13:55; Status DC Albumin Human 200 ml @ 200 mls/hr 1X PRN PRN IV Hypotension; Start 10/31/19 at 08:00; Stop 10/31/19 at 13:59; Status DC Sodium Chloride (Normal Saline Flush) 10 ml 1X PRN PRN IV AP catheter pack; Start 10/31/19 at 08:00; Stop 11/01/19 at 07:59; Status DC Sodium Chloride (Normal Saline Flush) 10 ml 1X PRN PRN IV FACE HARDENER catheter pack; Start 10/31/19 at 08:00; Stop 11/01/19 at 07:59; Status DC Sodium Chloride 1,000 ml @ 400 mls/hr Q2H30M PRN IV PATENCY; Start 10/31/19 at 07:56; Stop 10/31/19 at 19:55; Status DC Info (PHARMACY MONITORING -- do not chart) 1 each PRN DAILY PRN MC SEE COMMENTS; Start 10/31/19 at 08:00; Stop 10/31/19 at 08:01; Status DC Info (PHARMACY MONITORING -- do not chart) 1 each PRN DAILY PRN MC SEE COMMENTS; Start 10/31/19 at 08:00; Stop 10/31/19 at 08:01; Status DC Heparin Sodium (Porcine) (Heparin Sodium) 5,000 unit Q8HRS SQ Last administered on 11/03/19at 05:53; Start 10/31/19 at 22:00 Docusate Sodium (Colace) 100 mg PRN DAILY PRN PO HARD STOOLS Last administered on 11/01/19at 14:43; Start 11/01/19 at 14:15 Lidocaine/ Epinephrine (LIDOCAINE 1%-EPI 1:100,000 Multi-Dose) 20 ml STK-MED ONCE .ROUTE ; Start 11/02/19 at 11:27; Stop 11/02/19 at 11:28; Status DC Cefazolin Sodium (Ancef) 1 gm STK-MED ONCE IVP ; Start 11/02/19 at 11:40; Stop 11/02/19 at 11:40; Status DC Midazolam HCl (Versed) 2 mg STK-MED ONCE .ROUTE ; Start 11/02/19 at 11:40; Stop 11/02/19 at 11:40; Status DC Fentanyl Citrate (Fentanyl 2ml Vial) 100 mcg STK-MED ONCE .ROUTE ; Start 11/02/19 at 11:40; Stop 11/02/19 at 11:40; Status DC Sodium Chloride 1,000 ml @ 1,000 mls/hr Q1H PRN IV hypotension; Start 11/02/19 at 11:51; Stop 11/02/19 at 17:50; Status DC Diphenhydramine HCl (Benadryl) 25 mg 1X PRN PRN IV ITCHING; Start 11/02/19 at 12:00; Stop 11/03/19 at 11:59; Status DC Diphenhydramine HCl (Benadryl) 25 mg 1X PRN PRN IV ITCHING; Start 11/02/19 at 12:00; Stop 11/03/19 at 11:59; Status DC Sodium Chloride 1,000 ml @ 400 mls/hr Q2H30M PRN IV PATENCY; Start 11/02/19 at 11:51; Stop 11/02/19 at 23:50; Status DC Info (PHARMACY MONITORING -- do not chart) 1 each PRN DAILY PRN MC SEE COMME NTS; Start 11/02/19 at 12:00 Midazolam HCl (Versed) 2 mg 1X ONCE IV Last administered on 11/02/19at 12:00; Start 11/02/19 at 12:00; Stop 11/02/19 at 12:11; Status DC Fentanyl Citrate (Fentanyl 2ml Vial) 100 mcg 1X ONCE IV Last administered on 11/02/19at 12:00; Start 11/02/19 at 12:00; Stop 11/02/19 at 12:12; Status DC Lidocaine/ Epinephrine (LIDOCAINE 1%-EPI 1:100,000 Multi-Dose) 20 ml 1X ONCE INJ Last administered on 11/02/19at 12:00; Start 11/02/19 at 12:00; Stop 11/02/19 at 12:11; Status DC Cefazolin Sodium (Ancef) 1 gm 1X ONCE IVP Last administered on 11/02/19at 12:00; Start 11/02/19 at 12:00; Stop 11/02/19 at 12:11; Status DC Darbepoetin Don (ARANESP for DIALYSIS PTS) 60 mcg Mo SQ Last administered on 11/02/19at 23:23; Start 11/02/19 at 21:00 Active Scripts Active Reported Vitamin D3 (Cholecalciferol (Vitamin D3)) 10 Mcg Capsule 2,000 Units PO DAILY Zofran (Ondansetron Hcl) 4 Mg Tablet 1 Tab PO Q8HRS Klor-Con M20 (Potassium Chloride) 20 Meq Tab.er.prt 20 Meq PO DAILY Nifedipine Er (Nifedipine) 60 Mg Tab.er.24 60 Mg PO BID Levothyroxine Sodium 50 Mcg Tablet 50 Mcg PO DAILYAC PRN Labetalol Hcl 200 Mg Tablet 1 Tab PO BID Hydralazine Hcl 100 Mg Tablet 1 Tab PO TID Famotidine 20 Mg Tablet 20 Mg PO BID Bumetanide 1 Mg Tablet 1 Tab PO DAILY Benadryl (Diphenhydramine Hcl) 25 Mg Capsule 2 Cap PO PRN DAILY 30 Days Aspirin Ec (Aspirin) 81 Mg Tablet.dr 1 Tab PO DAILY Albuterol Sulfate Neb Soln (Albuterol Sulfate) 2.5 Mg/3 Ml Vial.neb 1.25 Mg NEB SOA Alprazolam 0.25 Mg Tablet 1 Tab PO PRN TID PRN Vitals/I & O Vital Sign - Last 24 Hours 11/02/19 11/02/19 11/02/19 11/02/19 16:45 19:00 20:00 23:14 Temp 98.4 98.1 98.4 98.1 Pulse 89 94 86 Resp 18 20 B/P (MAP) 185/90 162/83 (109) 200/100 (133) Pulse Ox 96 96 O2 Delivery Room Air Room Air Room Air 11/02/19 11/02/19 11/02/19 11/03/19 23:20 23:20 23:21 03:35 Temp 98.2 98.2 Pulse 86 86 86 86 Resp 18 B/P (MAP) 200/100 200/100 200/100 179/82 (114) Pulse Ox 94 O2 Delivery Room Air 11/03/19 11/03/19 11/03/19 11/03/19 04:27 07:00 07:56 08:00 Temp 98.7 98.7 Pulse 86 61 Resp 18 B/P (MAP) 179/82 179/87 (117) Pulse Ox 95 96 O2 Delivery Room Air Room Air Room Air 11/03/19 11/03/19 11/03/19 11/03/19 09:10 09:11 09:12 11:00 Temp 98.9 98.9 Pulse 86 86 86 78 Resp 18 B/P (MAP) 179/82 179/82 179/82 156/57 (90) Pulse Ox 94 O2 Delivery Room Air 11/03/19 11:50 O2 Delivery Room Air Intake and Output 11/02/19 11/02/19 11/03/19 15:00 23:00 07:00 Intake Total 800 ml 350 ml Output Total 450 ml Balance -450 ml 800 ml 350 ml SERGE CERDA MD Nov 03, 2019 12:37
--- NOTE | 2019-11-03 14:16 | NUR ---
SS following up with discharge planning. SS received phoned contact from [facility] Admissions reporting that pt has confirmed chair time at [facility], [address], [place] [address], ; fax [phone], Saturday, Saturday, and Saturday at 1400. Pt first chair time scheduled for 11/04/2019 at 1330. SS contacted pt's daughter and provided her with dialysis information. [facility]missions reporting that they need COVID19 test result. SS currently awaiting test result at this time and will proceed accordingly.
[2019-11-03 15:00] VITALS: BP 164/86
[2019-11-03] MEDS ORDERED: DULO30CA2 PO (15:17)
--- NOTE | 2019-11-03 15:19 | SNU/HH DC ---
DISCHARGE WITH HOME HEALTH DISCHARGE INFORMATION: Discharge Date: Nov 03, 2019 Final Diagnosis: Problems Medical Problems: (1) Hyponatremia Status: Acute (2) Kidney failure Status: Acute Condition on Discharge: Stable CODE STATUS: Code Status: DNR/DNI HOME HEALTH: Face to Face: I certify this patient is under my care and that I, or a nurse practitioner or physician's insurance underwriting assistant working with me, had a face to face encounter that meets the physician face to face encounter requirements with this patient on 11/03/2019. Medical Complications: CHF, Dementia, Other (ESRD) RN For Eval/Treatment: Yes Physical Therapy For: Evalulation/Treatment Occupational Therapy For: Evaluation/Treatment Home Health Aide For: Self-care NURSES SUPERVISOR For: Community Resources Pt Meets Homebound Status: Poor cognition POST DISCHARGE ORDERS: Activity Instructions for Disc: No restrictions Weight Bearing Status after Di: No restrictions Bathing Instructions: Shower-keep dressing dry DIET AFTER DISCHARGE: Renal Wound/Incision Care: Ice to area for comfort, Change dressing CHECKS AFTER DISCHARGE: Checks after discharge: Check blood press - daily, Weigh Yourself Daily FOLLOW-UP: Follow up with: Dr Darius Jarrett - Nephrology TREATMENT/EQUIPMENT ORDERS: Infusion Equipment, home use: PICC Line (DIALYSIS CATHETER - TUNNELED [facility]) CERTIFICATION STATEMENT: Certification Statement: Certification Statement: Based on the above finding, I certify that this patient is confined to the home and needs intermittent senior living care, physical therapy and/or speech therapy, or continues to need occupational therapy.~ This patient is under my care, and I have initiated the establishment of the plan of care.~ This patient will be followed by myself or a community physician who will periodically review the plan of care. Home Meds Active Scripts Duloxetine Hcl (CYMBALTA) 30 Mg Capsule., 60 MG PO DAILY for Mood for 90 Days, #180 CAP 1 Refill Prov:SERGE CERDA MD 11/03/19 Reported Medications Cholecalciferol (Vitamin D3) (Vitamin D3) 10 Mcg Capsule, 2000 UNITS PO DAILY for supplement, CAP 10/31/19 Ondansetron Hcl (ZOFRAN) 4 Mg Tablet, 1 TAB PO Q8HRS for anti nausea, #30 TAB 10/31/19 Nifedipine (NIFEDIPINE ER) 60 Mg Tab.er.24, 60 MG PO BID for high blood pressure, TAB.SR 10/31/19 Levothyroxine Sodium (LEVOTHYROXINE SODIUM) 50 Mcg Tablet, 50 MCG PO DAILYAC PRN for thyroid problem, #30 TAB 0 Refills 10/31/19 Labetalol Hcl (LABETALOL HCL) 200 Mg Tablet, 1 TAB PO BID for high blood pressure, #60 TAB 5 Refills 10/31/19 Hydralazine Hcl (HYDRALAZINE HCL) 100 Mg Tablet, 1 TAB PO TID for high blood pressure, #90 TAB 5 Refills 10/31/19 Diphenhydramine Hcl (BENADRYL) 25 Mg Capsule, 2 CAP PO PRN DAILY for allergy for 30 Days, CAP 0 Refills 10/31/19 Aspirin (ASPIRIN EC) 81 Mg Tablet.dr, 1 TAB PO DAILY for blood thinner, #30 TAB 3 Refills 10/31/19 Albuterol Sulfate (ALBUTEROL SULFATE NEB SOLN) 2.5 Mg/3 Ml Vial.neb, 1.25 MG NEB SOA for FOR ASTHMA, EACH 0 Refills 10/31/19 Alprazolam (ALPRAZOLAM) 0.25 Mg Tablet, 1 TAB PO PRN TID PRN for ANXIETY / AGITATION, #90 TAB 10/31/19 Discontinued Reported Medications Potassium Chloride (KLOR-CON M20) 20 Meq Tab.er.prt, 20 MEQ PO DAILY for electrolyte, TAB.SR 10/31/19 Famotidine (FAMOTIDINE) 20 Mg Tablet, 20 MG PO BID for anti acid, TAB 10/31/19 Bumetanide (BUMETANIDE) 1 Mg Tablet, 1 TAB PO DAILY for diuretic, #90 TAB 1 Refill 10/31/19 SERGE CERDA MD Nov 03, 2019 15:19
--- NOTE | 2019-11-03 15:22 | PDOC3 ---
Discharge Summary Visit Information Date of Admission: Oct 30, 2019 Date of Discharge: Nov 03, 2019 Admitting Diagnosis: New ESRD Final Diagnosis Problems Medical Problems: (1) Hyponatremia Status: Acute (2) Kidney failure Status: Acute Brief Hospital Course Allergies Allergies Coded Allergies Type Severity Reaction Last Updated Verified Penicillins Allergy Severe 10/31/19 Yes Ujnjagr-Yjj-Qlw Reductase Inhibitor Allergy Intermediate 10/31/19 Yes isosorbide Allergy Intermediate 10/31/19 Yes latex Allergy Intermediate 10/31/19 Yes trandolapril Allergy Intermediate 10/31/19 Yes verapamil Allergy Intermediate 10/31/19 Yes Vital Signs Vital Signs Date Time Temp Pulse Resp B/P (MAP) Pulse Ox O2 Delivery O2 Flow Rate FiO2 11/03/19 11:50 Room Air 11/03/19 11:00 98.9 78 18 156/57 (90) 94 98.9 11/02/19 12:00 2.0 Lab Results Laboratory Tests Test 11/01/19 16:19 11/01/19 20:29 11/02/19 03:50 11/02/19 03:51 Glucose (Fingerstick) 113 mg/dL (70-99) 125 mg/dL (70-99) Prothrombin Time 12.2 SEC (11.7-14.0) Prothromb Time International Ratio 0.9 (0.8-1.1) Activated Partial Thromboplast Time 28 SEC (24-38) Sodium Level 131 mmol/L (136-145) Potassium Level 3.8 mmol/L (3.5-5.1) Chloride Level 98 mmol/L (98-107) Carbon Dioxide Level 27 mmol/L (21-32) Anion Gap 6 (6-14) Blood Urea Nitrogen 18 mg/dL (7-20) Creatinine 3.8 mg/dL (0.6-1.0) Estimated GFR (Cockcroft-Gault) 11.6 Glucose Level 106 mg/dL (70-99) Calcium Level 8.1 mg/dL (8.5-10.1) Test 11/02/19 08:41 11/02/19 17:10 11/02/19 20:47 11/03/19 07:54 Glucose (Fingerstick) 118 mg/dL (70-99) 99 mg/dL (70-99) 120 mg/dL (70-99) 126 mg/dL (70-99) Test 11/03/19 12:07 Glucose (Fingerstick) 114 mg/dL (70-99) Laboratory Tests Test 11/02/19 17:10 11/02/19 20:47 11/03/19 07:54 11/03/19 12:07 Glucose (Fingerstick) 99 mg/dL (70-99) 120 mg/dL (70-99) 126 mg/dL (70-99) 114 mg/dL (70-99) Brief Hospital Course Ms Wilkins is a 74yo F w/ PMHx CKD, DM2, HTN who was sent in to ED because of abnormal labs by nephrology in order to initiate HD. Creatinine 6.2, which puts her GFR around 10%. S/p temporary HD catheter, labs improved. 11/01: Overnight afebrile. She is asking for breakfast. N.p.o. for tunneled dialysis catheter insertion. No CP or S OB. Tolerated tunneled line and dialysis well. Afebrile overnight. No SOB or CP. She is asking to leave. Awaiting COVID 19 test results and she is on a waiting list for [facility] dialysis chair, plans to go to [facility] on discharge now that COVID-19 results returned negative Problem list: End-stage renal disease - Successful ultrasound-guided placement of right internal jugular temporary dialysis catheter 10/29. Initiated on HD on 10/29, sent to [facility] by Dr. Ferris, 2nd treatment 10/30, Access- has Temp HDC, OP chair time for MWF with Dr. Ferris at [facility] unit DIABETES Severe protein-caloric malnutrition Hyponatremia - asymptomatic, Improved HypO kalemia- Monitor, Replace as needed HTN- antihypertensives Greater than 30 minutes spent on d/c Discharge Information Condition at Discharge: Improved Follow Up: Weeks Disposition/Orders: D/C to Home Scheduled Albuterol Sulfate (Albuterol Sulfate Neb Soln) 2.5 Mg/3 Ml Vial.neb, 1.25 MG NEB SOA for FOR ASTHMA, Ref 0 (Reported) Entered as Reported by: MIKAL LANTIGUA RN on 10/31/19709 Last Action: New Order on 10/31/19709 by MIKAL LANTIGUA RN Aspirin (Aspirin Ec) 81 Mg Tablet., 1 TAB PO DAILY for blood thinner, #30 Ref 3 (Reported) Entered as Reported by: MIKAL LANTIGUA RN on 10/31/19709 Last Action: New Order on 10/31/19709 by MIKAL LANTIGUA RN Cholecalciferol (Vitamin D3) (Vitamin D3) 10 Mcg Capsule, 2,000 UNITS PO DAILY for supplement, (Reported) Entered as Reported by: MIKAL LANTIGUA RN on 10/31/19709 Last Action: New Order on 10/31/19709 by MIKAL LANTIGUA RN Diphenhydramine Hcl (Benadryl) 25 Mg Capsule, 2 CAP PO PRN DAILY for allergy for 30 Days, Ref 0 (Reported) Entered as Reported by: MIKAL LANTIGUA RN on 10/31/19709 Last Action: New Order on 10/31/19709 by MIKAL LANTIGUA RN Duloxetine Hcl (Cymbalta) 30 Mg Capsule.dr, 60 MG PO DAILY for Mood for 90 Days, #180 Ref 1 Prescribed by: SERGE CERDA MD on 11/03/19 1517 Hydralazine Hcl (Hydralazine Hcl) 100 Mg Tablet, 1 TAB PO TID for high blood pressure, #90 Ref 5 (Reported) Entered as Reported by: MIKAL LANTIGUA RN on 10/31/19709 Last Action: New Order on 10/31/19709 by MIKAL LANTIGUA RN Labetalol Hcl (Labetalol Hcl) 200 Mg Tablet, 1 TAB PO BID for high blood pressure, #60 Ref 5 (Reported) Entered as Reported by: MIKAL LANTIGUA RN on 10/31/19709 Last Action: New Order on 10/31/19709 by MIKAL LANTIGUA RN Nifedipine (Nifedipine Er) 60 Mg Tab.er.24, 60 MG PO BID for high blood pres sure, (Reported) Entered as Reported by: MIKAL LANTIGUA RN on 10/31/19709 Last Action: New Order on 10/31/19709 by MIKAL LANTIGUA RN Ondansetron Hcl (Zofran) 4 Mg Tablet, 1 TAB PO Q8HRS for anti nausea, #30 (Reported) Entered as Reported by: MIKAL LANTIGUA RN on 10/31/19709 Last Action: New Order on 10/31/19709 by MIKAL LANTIGUA RN Scheduled PRN Alprazolam (Alprazolam) 0.25 Mg Tablet, 1 TAB PO PRN TID PRN for ANXIETY / AGITATION, #90 (Reported) Entered as Reported by: MIKAL LANTIGUA RN on 10/31/19651 Last Action: New Order on 10/31/19651 by MIKAL LANTIGUA RN Levothyroxine Sodium (Levothyroxine Sodium) 50 Mcg Tablet, 50 MCG PO DAILYAC PRN for thyroid problem, #30 Ref 0 (Reported) Entered as Reported by: MIKAL LANTIGUA RN on 10/31/19709 Last Action: New Order on 10/31/19709 by MIKAL LANTIGUA RN Discontinued Medications Bumetanide (Bumetanide) 1 Mg Tablet, 1 TAB PO DAILY for diuretic, #90 Ref 1 (Reported) Entered as Reported by: MIKAL LANTIGUA RN on 10/31/19709 Last Action: New Order on 10/31/19709 by MIKAL LANTIGUA RN Famotidine (Famotidine) 20 Mg Tablet, 20 MG PO BID for anti acid, (Reported) Entered as Reported by: MIKAL LANTIGUA RN on 10/31/19709 Last Action: New Order on 10/31/19709 by MIKAL LANTIGUA RN Potassium Chloride (Klor-Con M20) 20 Meq Tab.er.prt, 20 MEQ PO DAILY for electrolyte, (Reported) Entered as Reported by: MIKAL LANTIGUA RN on 10/31/19709 Last Action: New Order on 10/31/19709 by MIKAL LANTIGUA RN Justicifation of Admission Dx: Justifications for Admission: Justification of Admission Dx: Yes (Hemodialysis ) Chronic Renal Failure: Renail Failure SERGE CERDA MD Nov 03, 2019 15:22
--- NOTE | 2019-11-03 16:04 | NUR ---
SS following up with discharge planning. Discharge orders received for home healthcare. SS met with pt to discuss home healthcare. Pt reported that she was on services with [facility], ; fax [phone]. SS phoned and faxed discharge orders and referral to [facility]. Pt's RN notified.
--- NOTE | 2019-11-03 16:33 | NUR ---
PATIENT DISCHARGED HOME. DISCHARGE INSTRUCTIONS GIVEN. PIV AND HEART MONITOR REMOVED. ESCORTED PATIENT OFF UNIT INTO A PRIVATE VEHICLE.
== END 2019-11-03 16:40 | disposition home health service (06) | DRG 673 ==
LOC: ER 11:08 → 2 SOUTH 12:47
PROVIDERS: ADMIT Internal Medicine; ATTEND Internal Medicine
PROC: 5A1D70Z Performance of Urinary Filtration, Intermittent, Less than 6 Hours Per Day (ICD-10-PCS; 2019-10-30)
PROC: 02H633Z Insertion of Infusion Device into Right Atrium, Percutaneous Approach (ICD-10-PCS; 2019-10-30)
PROC: B548ZZA Ultrasonography of Superior Vena Cava, Guidance (ICD-10-PCS; 2019-10-30)
PROC: 5A1D70Z Performance of Urinary Filtration, Intermittent, Less than 6 Hours Per Day (ICD-10-PCS; principal; 2019-10-31)
PROC: 0JH63XZ Insertion of Tunneled Vascular Access Device into Chest Subcutaneous Tissue and Fascia, Percutaneous Approach (ICD-10-PCS; 2019-11-02)
PROC: 5A1D70Z Performance of Urinary Filtration, Intermittent, Less than 6 Hours Per Day (ICD-10-PCS; 2019-11-02)
PROC: B548ZZA Ultrasonography of Superior Vena Cava, Guidance (ICD-10-PCS; 2019-11-02)
PROC: 02PYX3Z Removal of Infusion Device from Great Vessel, External Approach (ICD-10-PCS; 2019-11-02)
PROC: 02H633Z Insertion of Infusion Device into Right Atrium, Percutaneous Approach (ICD-10-PCS; 2019-11-02)
PROC: B5181ZA Fluoroscopy of Superior Vena Cava using Low Osmolar Contrast, Guidance (ICD-10-PCS; 2019-11-02)
DX: I12.0 Hypertensive chronic kidney disease with stage 5 chronic kidney disease or end stage renal disease (principal); E43 Unspecified severe protein-calorie malnutrition; N18.6 End stage renal disease; N17.9 Acute kidney failure, unspecified; E87.1 Hypo-osmolality and hyponatremia; E87.6 Hypokalemia; D64.9 Anemia, unspecified; E11.22 Type 2 diabetes mellitus with diabetic chronic kidney disease; F41.9 Anxiety disorder, unspecified; F03.90 Unspecified dementia, unspecified severity, without behavioral disturbance, psychotic disturbance, mood disturbance, and anxiety; Z82.49 Family history of ischemic heart disease and other diseases of the circulatory system; Z20.828 Contact with and (suspected) exposure to other viral communicable diseases; Z86.73 Personal history of transient ischemic attack (TIA), and cerebral infarction without residual deficits; Z99.2 Dependence on renal dialysis; Z88.8 Allergy status to other drugs, medicaments and biological substances; Z88.0 Allergy status to penicillin; Z91.040 Latex allergy status; Z68.21 Body mass index [BMI] 21.0-21.9, adult
CPT/HCPCS: 36415; 36556; 36558; 71045; 76937; 77001; 80048; 80053; 82962; 85025; 85610; 85730; 86317; 86704; 87340; 94640; 94760; 96372; 99152; 99285; C1750; C1769; C1892; J0360; J0690; J0882; J1644; J2250; J3010; J3490; G0378; J7613; Q0163; U0003-CS